=== PATIENT | female | born 1955 | race African-American/Black ===

== ENCOUNTER 2017-06-15 18:01 | Emergency (ER) | payer BC, MEDICARE ==
[~2017-06-15] VITALS: Ht 170.2 cm; Wt 92.0 kg
[~2017-06-15 18:01] MED LIST: ATOR-2 PO; CARV6.2548 PO; FURO40TA5 PO; HYDR-3927 PO; LISI40TA4 PO; OMEG-59 PO; POTA20TA82 PO
[2017-06-15] MEDS ORDERED: TRAMADOL 50MG TABLET PO ONE (19:30)
[2017-06-15 20:01] LABS: CARBON DIOXIDE 28 mEq/L (21-32); CHLORIDE 99 mEq/L (98-107)
[2017-06-15 20:03] LABS: BASOPHILS % 1.1 % (0.0-2.0); EOSINOPHILS % 3.3 % (0.0-5.0); HEMATOCRIT. 42.7 % (36.0-48.0); HEMOGLOBIN. 14.1 g/dL (12.0-16.0); LYMPHOCYTES % 26.3 % (20.0-50.0); MEAN CORPUSCULAR HEMOGLOBIN 29.7 pg (28.0-32.0); MEAN CORPUSCULAR VOLUME 89.6 fL (81.0-99.0); NEUTROPHILS % 58.3 % (40.0-76.0); PLATELET 140 x1000/uL (130-400); RED BLOOD CELL COUNT 4.77 mill/uL (4.2-5.4); RED CELL DISTRIBUTION WIDTH 15.2 % (11.6-14.6)
[2017-06-15] MEDS ORDERED: SODIUM CHLORIDE 0.9% 1,000 ML IV ONE (20:38)
[2017-06-15] MEDS ORDERED: INSULIN REGULAR (HUMULIN R) UD 100 UNITS/ML SYR IV ONE (22:30)
[2017-06-15] MEDS ORDERED: INSULIN REGULAR (HUMULIN R) 300UNITS/3ML ONE (23:11)
[2017-06-15 23:42] VITALS: BP 128/91
[2017-06-15] MEDS ORDERED: INSULIN REGULAR (HUMULIN R) 300UNITS/3ML IV SCH (23:45)
== END 2017-06-16 00:10 | disposition home or self-care (01) ==
LOC: ER 18:01
DX: R25.2 Cramp and spasm (principal); E11.65 Type 2 diabetes mellitus with hyperglycemia; I11.0 Hypertensive heart disease with heart failure; Z95.0 Presence of cardiac pacemaker
CPT/HCPCS: 36415; 80053; 82962; 85025; 93970; 96361; 96374; 99285; J1815; J7030

== ENCOUNTER 2017-11-25 22:58 | Inpatient (IN) | payer MEDICARE, BC ==
[~2017-11-25] VITALS: Ht 162.6 cm; Wt 68.0 kg
[2017-11-25] MEDS ORDERED: FENTANYL CITRATE/PF 500 MCG in SODIUM CHLORIDE 0.9% 40 ML IV STA (23:14)
[2017-11-25] MEDS ORDERED: FENTANYL CITRATE/PF 50MCG/ML 2ML VIAL IV ONE (23:15)
[2017-11-25] MEDS ORDERED: FUROSEMIDE 100MG/10ML VIAL IVP ONE (23:30)
[2017-11-25 23:44] LABS: BASOPHILS % 0.4 % (0.0-2.0); EOSINOPHILS % 2.2 % (0.0-5.0); HEMATOCRIT. 39.7 % (36.0-48.0); HEMOGLOBIN. 13.1 g/dL (12.0-16.0); LYMPHOCYTES % 17.1 % (20.0-50.0); MEAN CORPUSCULAR HEMOGLOBIN 28.4 pg (28.0-32.0); MEAN CORPUSCULAR VOLUME 86.2 fL (81.0-99.0); MEAN PLATELET VOLUME 10.2 fl (7.4-10.4); MONOCYTES % 9.6 % (2.0-8.0); NEUTROPHILS % 70.7 % (40.0-76.0); PLATELET 125 x1000/uL (130-400); RED BLOOD CELL COUNT 4.61 mill/uL (4.2-5.4); RED CELL DISTRIBUTION WIDTH 15.8 % (11.6-14.6)
[2017-11-25 23:50] LABS: INR 1.2
[2017-11-25 23:55] LABS: CHLORIDE 98 mEq/L (98-107)
[2017-11-26 01:29] LABS: CLARITY URINE CLEAR (CLEAR); COLOR URINE YELLOW (YELLOW); KETONES URINE NEGATIVE (NEGATIVE); LEUKOCYTE ESTERASE URINE 1+ (NEGATIVE); NITRITE URINE POSITIVE (NEGATIVE); OCCULT BLOOD URINE 2+ (NEGATIVE); PROTEIN URINE 1+ (NEGATIVE); SPECIFIC GRAVITY URINE 1.016 (1.005-1.030); UROBILINOGEN URINE 0.2 E.U./dL (0.2-1.0)
[2017-11-26] MEDS ORDERED: CEFTRIAXONE 1 G PREMIX 50 ML IV NR (02:00)
[2017-11-26] MEDS ORDERED: SODIUM CHLORIDE 0.9% 1,000 ML IV ONE (02:00)
[2017-11-26] MEDS ORDERED: DEXTROSE 50% WATER 50ML SYRINGE IV PRN ×3 (05:45→13:15)
[2017-11-26] MEDS ORDERED: INSULIN LISPRO 100 UNITS/ML SUBCUT SCH ×4 (07:50→17:20)
[2017-11-26] MEDS ORDERED: BLOOD SUGAR DIAGNOSTIC STRIP TEST SCH ×2 (09:00→13:14)
[2017-11-26] MEDS ORDERED: FUROSEMIDE 40MG/4ML VIAL IVP SCH (09:30)
[2017-11-26] MEDS ORDERED: POTASSIUM CHLORIDE 20MEQ TABLET SR PO SCH (09:30)
[2017-11-26] MEDS ORDERED: CARVEDILOL 6.25 MG TABLET PO SCH (09:30)
[2017-11-26] MEDS ORDERED: ENOXAPARIN 40MG/0.4ML SYR SUBCUT SCH (09:30)
[2017-11-26] MEDS ORDERED: LISINOPRIL 40MG TABLET PO SCH (09:30)
[2017-11-26] MEDS: BLOOD SUGAR DIAGNOSTIC STRIP TEST SCH ×2 (09:46→12:30)
[2017-11-26 11:09] LABS: CHLORIDE 99 mEq/L (98-107)
[2017-11-26 11:14] LABS: HDL CHOLESTEROL 51 mg/dL (40-59); LDL CHOLESTEROL 85 mg/dL (5-100)
[2017-11-26 11:33] VITALS: BP 123/90
[2017-11-26] MEDS ORDERED: INSULIN LISPRO (MEDIUM DOSE) 100 UNITS/ML SUBCUT SCH (12:20)
[2017-11-26 14:58] VITALS: BP 123/88
[2017-11-26] MEDS ORDERED: CEFTRIAXONE 1 G PREMIX 50 ML IV SCH (23:00)
== END 2017-11-26 16:00 | disposition short-term general hospital (02) | DRG 292 ==
LOC: ER 23:07 → 6WST 11-26 04:20 → EDBEDREQTM 11-26 04:22 → EDBEDREQ 11-26 04:22 → ENRESERV 11-26 07:08 → SUPCPDRO 11-26 08:38
PROVIDERS: ADMIT Internal Medicine Critical Care Medicine; ATTEND Internal Medicine Critical Care Medicine
DX: I11.0 Hypertensive heart disease with heart failure (principal); N39.0 Urinary tract infection, site not specified; E44.0 Moderate protein-calorie malnutrition; I42.9 Cardiomyopathy, unspecified; E11.9 Type 2 diabetes mellitus without complications; I50.9 Heart failure, unspecified; Z79.4 Long term (current) use of insulin; Z91.14 Patient's other noncompliance with medication regimen; Z95.810 Presence of automatic (implantable) cardiac defibrillator; Z87.891 Personal history of nicotine dependence; Z79.899 Other long term (current) drug therapy
CPT/HCPCS: 36415; 71045; 80048; 80053; 80061; 81003; 82010; 82553; 82962; 83036; 83605; 83880; 84484; 85025; 85610; 87040; 87077; 87086; 87186; 93005; 93970; 96365; 96375; 99285; J0696; J1650; J1815; J1940; J3010; J7030

== ENCOUNTER 2018-11-13 17:51 | Inpatient (IN) | payer MEDICARE, BC ==
[~2018-11-13] VITALS: Ht 160 cm; Wt 92.5 kg
[~2018-11-13 17:51] MED LIST changes: -OMEG-59 PO
[2018-11-13] MEDS ORDERED: KETOROLAC 30MG/ML VIAL IV STA (18:03)
[2018-11-13] MEDS ORDERED: SODIUM CHLORIDE 0.9% 1,000 ML IV ONE (18:03)
[2018-11-13] MEDS ORDERED: IPRATROPIUM BROMIDE (0.02%) 0.5MG/2.5ML NEB HHN STA (18:32)
[2018-11-13 18:48] LABS: BASOPHILS % 0.8 % (0.0-2.0); EOSINOPHILS % 0.2 % (0.0-5.0); HEMATOCRIT. 35.8 % (36.0-48.0); HEMOGLOBIN. 11.5 g/dL (12.0-16.0); LYMPHOCYTES % 28.5 % (20.0-50.0); MEAN CORPUSCULAR HEMOGLOBIN 29.3 pg (28.0-32.0); MEAN CORPUSCULAR VOLUME 90.7 fL (81.0-99.0); MEAN PLATELET VOLUME 11.1 fl (7.4-10.4); MONOCYTES % 14.6 % (2.0-8.0); NEUTROPHILS % 55.9 % (40.0-76.0); PLATELET 94 x1000/uL (130-400); RED BLOOD CELL COUNT 3.94 mill/uL (4.2-5.4); RED CELL DISTRIBUTION WIDTH 14.5 % (11.6-14.6)
[2018-11-13 18:55] LABS: CHLORIDE 104 mEq/L (98-107)
[2018-11-13] MEDS ORDERED: ALBUTEROL (0.083%) 2.5MG/3ML NEB HHN SCH (19:00)
[2018-11-13] MEDS ORDERED: FUROSEMIDE 40MG/4ML VIAL IVP ONE (20:45)
[2018-11-13] MEDS ORDERED: DIPHENHYDRAMINE 50MG/ML VIAL IV PRN (22:45)
[2018-11-13] MEDS ORDERED: TRAMADOL 50MG TABLET PO PRN (22:45)
[2018-11-13] MEDS ORDERED: DEXTROSE 50% WATER 50ML SYRINGE IV PRN (22:45)
[2018-11-13] MEDS ORDERED: GUAIFENESIN 200MG/10ML SUGAR FREE UDC PO PRN (22:45)
[2018-11-13] MEDS ORDERED: ACETAMINOPHEN 325MG TABLET PO PRN (22:45)
[2018-11-13] MEDS ORDERED: NITROGLYCERIN 0.4MG TABLET SL SL PRN (22:45)
[2018-11-13] MEDS ORDERED: DOCUSATE SODIUM 100MG CAPSULE PO PRN (22:45)
[2018-11-13] MEDS ORDERED: IPRATROPIUM/ALBUTEROL 0.5-3(2.5)MG/3ML NEB INH PRN (22:45)
[2018-11-13] MEDS ORDERED: LORAZEPAM 0.5MG TABLET PO PRN (22:45)
[2018-11-13] MEDS ORDERED: MAGNESIUM/ALUMINUM HYDROXIDE/SIMETHICONE 30ML UDC PO PRN (22:45)
[2018-11-13] MEDS ORDERED: ONDANSETRON HCL 4MG/2ML INJ IV PRN (22:45)
[2018-11-13] MEDS ORDERED: CLONIDINE 0.1MG TABLET PO PRN (22:45)
[2018-11-13] MEDS ORDERED: ALBUTEROL (0.083%) 2.5MG/3ML NEB HHN STA (22:53)
[2018-11-14 04:30] VITALS: BP 108/61
[2018-11-14] MEDS ORDERED: ZOLPIDEM TARTRATE 5MG TABLET PO PRN ×2 (04:45→16:15)
[2018-11-14] MEDS: CARVEDILOL 3.125 MG TABLET PO SCH ×2 (06:07→17:18)
[2018-11-14] MEDS: BLOOD SUGAR DIAGNOSTIC STRIP TEST SCH ×4 (06:08→21:00)
[2018-11-14] MEDS: INSULIN LISPRO 100 UNITS/ML SUBCUT SCH ×4 (06:18→22:19)
[2018-11-14 07:41] LABS: CREATINE KINASE 382 IU/L (26-192)
[2018-11-14 07:42] LABS: CREATINE KINASE MB FRACTION < 1.0 ng/mL (0.5-3.6)
[2018-11-14 08:00] VITALS: BP 107/68
[2018-11-14] MEDS ORDERED: ENOXAPARIN 40MG/0.4ML SYR SUBCUT SCH (09:00)
[2018-11-14] MEDS: FUROSEMIDE 40MG/4ML VIAL IVP SCH ×2 (09:06→22:15)
[2018-11-14] MEDS: GUAIFENESIN/DM 600MG/30MG ER TAB 12HR PO SCH ×2 (09:07→22:14)
[2018-11-14] MEDS: SPIRONOLACTONE 25MG TABLET PO SCH ×2 (09:07→22:15)
[2018-11-14] MEDS: FAMOTIDINE 20MG TABLET PO SCH ×2 (09:07→22:14)
[2018-11-14] MEDS: ASPIRIN 325MG EC TABLET PO SCH (09:07)
[2018-11-14] MEDS: ENOXAPARIN 30MG/0.3ML SYR SUBCUT SCH ×2 (10:09→22:20)
[2018-11-14 12:06] VITALS: BP_SYST 111; BP_SYST 134; BP_DIAS 65; BP_DIAS 77
[2018-11-14] MEDS ORDERED: LIDOCAINE HCL/PF 1% 2ML VIAL ONE (15:26)
[2018-11-14] MEDS ORDERED: DIPHENOXYLATE/ATROPINE 2.5/0.025MG TABLET PO PRN (15:45)
[2018-11-14 16:00] VITALS: BP 93/66
[2018-11-14 16:53] LABS: BG BASE EXCESS -1.5 mmol/L (-2.0-2.0); BG CARBOXYHEMOGLOBIN 0.8 % (0.5-1.5); BG FRACTION INSPIRED OXYGEN 21; BG METHEMOGLOBIN 0.1 % (0.0-1.5); BG OXYHEMOGLOBIN 94.1 % (94.0-97.0); BG PCO2 33.1 mmHg (35.0-45.0); BG PH 7.441 (7.350-7.450); BG SAMPLE SITE RIGHT BRACHIAL; BG TOTAL HEMOGLOBIN 11.6 g/dL (12.0-18.0); BG VENT MODE ROOM AIR
[2018-11-14] MEDS: FLUTICASONE/VILANTEROL 200-25 BLST.W.DEV ORI SCH (17:17)
[2018-11-14] MEDS: UMECLIDINIUM BROMIDE 1 INH BLST.W.DEV IH SCH (17:17)
[2018-11-14 17:38] LABS: CREATINE KINASE MB FRACTION 1.2 ng/mL (0.5-3.6)
[2018-11-14 20:00] VITALS: BP 110/74
[2018-11-15] VITALS: BP 111/76
[2018-11-15 04:00] VITALS: BP 112/73
[2018-11-15] MEDS: CARVEDILOL 3.125 MG TABLET PO SCH ×2 (06:18→17:56)
[2018-11-15] MEDS: BLOOD SUGAR DIAGNOSTIC STRIP TEST SCH ×4 (06:43→21:29)
[2018-11-15] MEDS: INSULIN LISPRO 100 UNITS/ML SUBCUT SCH ×4 (06:44→21:00)
[2018-11-15 07:31] LABS: BASOPHILS % 0.8 % (0.0-2.0); EOSINOPHILS % 2.5 % (0.0-5.0); HEMATOCRIT. 31.9 % (36.0-48.0); HEMOGLOBIN. 10.3 g/dL (12.0-16.0); MEAN CORPUSCULAR VOLUME 89.6 fL (81.0-99.0); MEAN PLATELET VOLUME 11.6 fl (7.4-10.4); MONOCYTES % 13.5 % (2.0-8.0); NEUTROPHILS % 40.2 % (40.0-76.0); PLATELET 95 x1000/uL (130-400); RED BLOOD CELL COUNT 3.56 mill/uL (4.2-5.4); RED CELL DISTRIBUTION WIDTH 14.4 % (11.6-14.6)
[2018-11-15 08:00] VITALS: BP 108/78
[2018-11-15 08:09] LABS: PHOSPHORUS 3.4 mg/dL (2.5-4.9)
[2018-11-15] MEDS: ASPIRIN 325MG EC TABLET PO SCH (09:06)
[2018-11-15] MEDS: SPIRONOLACTONE 25MG TABLET PO SCH ×2 (09:06→21:00)
[2018-11-15] MEDS: GUAIFENESIN/DM 600MG/30MG ER TAB 12HR PO SCH ×2 (09:06→21:31)
[2018-11-15] MEDS: ENOXAPARIN 30MG/0.3ML SYR SUBCUT SCH ×2 (09:07→21:31)
[2018-11-15] MEDS: FUROSEMIDE 40MG/4ML VIAL IVP SCH ×2 (09:07→21:30)
[2018-11-15] MEDS: FAMOTIDINE 20MG TABLET PO SCH ×2 (09:07→21:30)
[2018-11-15] MEDS: FLUTICASONE/VILANTEROL 200-25 BLST.W.DEV ORI SCH (09:09)
[2018-11-15] MEDS: INSULIN GLARGINE UD 100 UNITS/ML SYR SUBCUT SCH (09:15)
[2018-11-15] MEDS: UMECLIDINIUM BROMIDE 1 INH BLST.W.DEV IH SCH (09:16)
[2018-11-15 12:00] VITALS: BP 108/74
[2018-11-15 16:00] VITALS: BP 94/66
[2018-11-15] MEDS: POTASSIUM CHLORIDE 20MEQ TABLET SR PO SCH (16:38)
[2018-11-15] MEDS ORDERED: METO2.5T14 PO (17:48)
[2018-11-15] MEDS ORDERED: SACU1TAB7 MT (17:48)
[2018-11-15] MEDS ORDERED: ASPI-1159 MT (17:48)
[2018-11-15] MEDS ORDERED: OMEP40CA34 MT (17:48)
[2018-11-15] MEDS ORDERED: GABA-529 MT (17:48)
[2018-11-15] MEDS ORDERED: INSU100I26 SQ (17:50)
[2018-11-15] MEDS ORDERED: INSU100I28 SQ (17:50)
[2018-11-15] MEDS ORDERED: ASCO-339 MT (17:51)
[2018-11-15] MEDS ORDERED: CYAN-33 MT (17:51)
[2018-11-15 20:00] VITALS: BP 95/69
[2018-11-16] VITALS (7 sets, daily range): BP systolic 89–104; BP diastolic 62–72
[2018-11-16] MEDS: CARVEDILOL 3.125 MG TABLET PO SCH ×2 (05:02→18:00)
[2018-11-16] MEDS: BLOOD SUGAR DIAGNOSTIC STRIP TEST SCH ×4 (06:26→21:14)
[2018-11-16] MEDS: INSULIN LISPRO 100 UNITS/ML SUBCUT SCH ×4 (06:39→21:00)
[2018-11-16 07:14] LABS: BASOPHILS % 0.6 % (0.0-2.0); EOSINOPHILS % 3.9 % (0.0-5.0); HEMATOCRIT. 32.8 % (36.0-48.0); HEMOGLOBIN. 10.8 g/dL (12.0-16.0); LYMPHOCYTES % 54.9 % (20.0-50.0); MEAN CORPUSCULAR HEMOGLOBIN 29.6 pg (28.0-32.0); MEAN CORPUSCULAR VOLUME 89.9 fL (81.0-99.0); MEAN PLATELET VOLUME 12.4 fl (7.4-10.4); MONOCYTES % 13.2 % (2.0-8.0); NEUTROPHILS % 27.4 % (40.0-76.0); PLATELET 110 x1000/uL (130-400); RED BLOOD CELL COUNT 3.65 mill/uL (4.2-5.4); RED CELL DISTRIBUTION WIDTH 14.4 % (11.6-14.6)
[2018-11-16] MEDS: ENOXAPARIN 30MG/0.3ML SYR SUBCUT SCH ×2 (09:13→21:14)
[2018-11-16] MEDS: POTASSIUM CHLORIDE 20MEQ TABLET SR PO SCH (09:13)
[2018-11-16] MEDS: FUROSEMIDE 40MG/4ML VIAL IVP SCH ×2 (09:13→21:13)
[2018-11-16] MEDS: GUAIFENESIN/DM 600MG/30MG ER TAB 12HR PO SCH ×2 (09:13→21:13)
[2018-11-16] MEDS: SPIRONOLACTONE 25MG TABLET PO SCH ×2 (09:14→21:00)
[2018-11-16] MEDS: FAMOTIDINE 20MG TABLET PO SCH ×2 (09:14→21:13)
[2018-11-16] MEDS: ASPIRIN 325MG EC TABLET PO SCH (09:16)
[2018-11-16] MEDS: FLUTICASONE/VILANTEROL 200-25 BLST.W.DEV ORI SCH (10:30)
[2018-11-16] MEDS: INSULIN GLARGINE UD 100 UNITS/ML SYR SUBCUT SCH (10:30)
[2018-11-16] MEDS: UMECLIDINIUM BROMIDE 1 INH BLST.W.DEV IH SCH (10:30)
[2018-11-16] MEDS ORDERED: MAGNESIUM 2 G PREMIX 50 ML IV NR (19:30)
[2018-11-17] MEDS ORDERED: ASPIRIN 81MG EC TABLET PO SCH (09:00)
== END 2018-11-16 22:30 | disposition home or self-care (01) | DRG 292 ==
LOC: ER 17:51 → 5WST 22:05 → EDBEDREQ 22:08 → EDBEDREQTM 22:08 → SUPCPDRO 22:34 → EDBEDREQTM 22:52 → EDBEDREQ 22:52 → ENRESERV 11-14 02:34
PROVIDERS: ADMIT Internal Medicine Pulmonary Disease; ATTEND Internal Medicine Pulmonary Disease
DX: I11.0 Hypertensive heart disease with heart failure (principal); E44.0 Moderate protein-calorie malnutrition; E83.51 Hypocalcemia; D64.9 Anemia, unspecified; E11.65 Type 2 diabetes mellitus with hyperglycemia; K52.9 Noninfective gastroenteritis and colitis, unspecified; I49.3 Ventricular premature depolarization; I42.0 Dilated cardiomyopathy; J45.909 Unspecified asthma, uncomplicated; E66.9 Obesity, unspecified; I50.23 Acute on chronic systolic (congestive) heart failure; E78.00 Pure hypercholesterolemia, unspecified; E87.6 Hypokalemia; E78.5 Hyperlipidemia, unspecified; E83.42 Hypomagnesemia; Z79.4 Long term (current) use of insulin; Z79.82 Long term (current) use of aspirin; Z79.899 Other long term (current) drug therapy; Z82.49 Family history of ischemic heart disease and other diseases of the circulatory system; Z82.5 Family history of asthma and other chronic lower respiratory diseases; Z83.3 Family history of diabetes mellitus; Z87.891 Personal history of nicotine dependence; Z91.19 Patient's noncompliance with other medical treatment and regimen; Z95.810 Presence of automatic (implantable) cardiac defibrillator; Z80.9 Family history of malignant neoplasm, unspecified; Z68.36 Body mass index [BMI] 36.0-36.9, adult
CPT/HCPCS: 36415; 36600; 71045; 80048; 80061; 82375; 82550; 82553; 82805; 82962; 83036; 83735; 83880; 84100; 84484; 93005; 93970; 96374; 99285; J1650; J1815; J1885; J1940; J2405; J3475; J3490; J7030; J7050; J7611; J7620

== ENCOUNTER 2019-10-17 07:49 | Emergency (ER) | payer MEDICARE, BC ==
[~2019-10-17] VITALS: Ht 167.6 cm; Wt 78.0 kg
[~2019-10-17 07:49] MED LIST changes: +ASCO-339 MT; +ASPI-1497 MT; +CYAN-33 MT; +GABA-529 MT; +INSU100I26 SQ; +INSU100I28 SQ; +METO2.5T14 PO; +OMEP40CA12 MT; +SACU1TAB7 MT
[2019-10-17] MEDS ORDERED: ACETAMINOPHEN 500MG TABLET PO ONE (09:00)
[2019-10-17 10:40] VITALS: BP 138/97
== END 2019-10-17 11:04 | disposition home or self-care (01) ==
LOC: ER 08:06
DX: M25.552 Pain in left hip (principal); E11.9 Type 2 diabetes mellitus without complications; J45.909 Unspecified asthma, uncomplicated; I11.0 Hypertensive heart disease with heart failure; I50.9 Heart failure, unspecified; Z79.899 Other long term (current) drug therapy; Z79.4 Long term (current) use of insulin; Z95.0 Presence of cardiac pacemaker
CPT/HCPCS: 73502; 99283

== ENCOUNTER 2020-11-13 10:59 | Inpatient (IN) | payer MEDICARE, BC ==
[~2020-11-13] VITALS: Ht 170.2 cm; Wt 89.8 kg
[~2020-11-13 10:59] MED LIST changes: -ASCO-339 MT; +ASCO-339 PO; -ASPI-1497 MT; +ASPI-1497 PO; -GABA-529 MT; +GABA-529 PO; +LISI40TA13 PO; -LISI40TA4 PO; -METO2.5T14 PO; +METO2.5T2 PO; -OMEP40CA12 MT; +OMEP40CA12 PO
[2020-11-13 12:25] LABS: BASOPHILS % 2.3 % (0.0-2.0); EOSINOPHILS % 7.9 % (0.0-5.0); HEMATOCRIT. 41.7 % (36.0-48.0); HEMOGLOBIN. 12.7 g/dL (12.0-16.0); LYMPHOCYTES % 27.3 % (20.0-50.0); MEAN CORPUSCULAR HEMOGLOBIN 26.5 pg (28.0-32.0); MEAN CORPUSCULAR VOLUME 86.8 fL (81.0-99.0); MEAN PLATELET VOLUME 10.4 fl (7.4-10.4); MONOCYTES % 12.5 % (2.0-8.0); PLATELET 129 x1000/uL (130-400); RED BLOOD CELL COUNT 4.81 mill/uL (4.2-5.4)
[2020-11-13 12:40] LABS: CHLORIDE 110 mEq/L (98-107)
[2020-11-13] MEDS ORDERED: ONDANSETRON HCL 4MG/2ML INJ IV PRN (13:15)
[2020-11-13] MEDS ORDERED: ACETAMINOPHEN 325MG TABLET PO PRN (13:15)
[2020-11-13] MEDS ORDERED: FUROSEMIDE 40MG/4ML VIAL IVP NR (18:15)
[2020-11-13] MEDS ORDERED: DEXTROSE 50% WATER 50ML SYRINGE IV PRN (18:30)
[2020-11-13] MEDS: INSULIN LISPRO 100 UNITS/ML SUBCUT SCH ×2 (18:30→21:00)
[2020-11-13] MEDS: BLOOD SUGAR DIAGNOSTIC STRIP TEST SCH ×2 (19:02→20:49)
[2020-11-13] MEDS ORDERED: SACUBITRIL/VALSARTAN 49MG/51MG TABLET PO SCH (21:00)
[2020-11-13] MEDS: CARVEDILOL 6.25 MG TABLET PO SCH (21:39)
[2020-11-14 01:00] VITALS: BP 126/84
[2020-11-14] MEDS ORDERED: SACU1TAB PO (01:02)
[2020-11-14] MEDS ORDERED: POTA10TA11 PO (01:02)
[2020-11-14] MEDS ORDERED: HYDR-4001 PO (01:02)
[2020-11-14] MEDS ORDERED: FURO80TA3 PO (01:02)
[2020-11-14 04:00] VITALS: BP 106/66
[2020-11-14] MEDS: BLOOD SUGAR DIAGNOSTIC STRIP TEST SCH ×2 (05:34→11:45)
[2020-11-14] MEDS: INSULIN LISPRO 100 UNITS/ML SUBCUT SCH ×2 (05:35→11:45)
[2020-11-14 06:20] LABS: HEMOGLOBIN. 12.1 g/dL (12.0-16.0); MEAN CORPUSCULAR VOLUME 86.9 fL (81.0-99.0); MEAN PLATELET VOLUME 10.9 fl (7.4-10.4); PLATELET 134 x1000/uL (130-400); RED BLOOD CELL COUNT 4.49 mill/uL (4.2-5.4); RED CELL DISTRIBUTION WIDTH 19.6 % (11.6-14.6)
[2020-11-14 06:57] LABS: CHLORIDE 108 mEq/L (98-107)
[2020-11-14 08:00] VITALS: BP 92/57
[2020-11-14] MEDS ORDERED: REGADENOSON 0.4 MG/5 ML IV SCH (08:30)
[2020-11-14] MEDS: CARVEDILOL 6.25 MG TABLET PO SCH (09:00)
[2020-11-14] MEDS ORDERED: FUROSEMIDE 40MG/4ML VIAL IVP SCH (09:00)
[2020-11-14] MEDS ORDERED: ASPIRIN 81MG TABLET PO SCH (09:00)
[2020-11-14] MEDS ORDERED: REGADENOSON 0.4 MG/5 ML IV ONE (09:41)
[2020-11-14 12:00] VITALS: BP_SYST 102; BP_SYST 153; BP_DIAS 69; BP_DIAS 84
[2020-11-14] MEDS ORDERED: SACUBITRIL/VALSARTAN 49MG/51MG TABLET PO SCH (12:30)
[2020-11-14 14:34] LABS: PLATELET ESTIMATE NORMAL
[2020-11-14 15:58] VITALS: BP 102/69
[2020-11-14 16:05] VITALS: BP 102/69
== END 2020-11-14 17:00 | disposition home or self-care (01) | DRG 205 ==
LOC: ER 10:59 → 8WST 13:00 → ENRESERV 23:04
PROVIDERS: ADMIT Ophthalmology; ATTEND Ophthalmology
DX: M94.0 Chondrocostal junction syndrome [Tietze] (principal); I50.23 Acute on chronic systolic (congestive) heart failure; N17.0 Acute kidney failure with tubular necrosis; E44.1 Mild protein-calorie malnutrition; I42.0 Dilated cardiomyopathy; I25.10 Atherosclerotic heart disease of native coronary artery without angina pectoris; I11.0 Hypertensive heart disease with heart failure; E11.9 Type 2 diabetes mellitus without complications; E87.5 Hyperkalemia; Z87.891 Personal history of nicotine dependence; E87.8 Other disorders of electrolyte and fluid balance, not elsewhere classified; D72.819 Decreased white blood cell count, unspecified; E78.5 Hyperlipidemia, unspecified; J44.9 Chronic obstructive pulmonary disease, unspecified; I44.7 Left bundle-branch block, unspecified; Z20.822 Contact with and (suspected) exposure to COVID-19; Z95.810 Presence of automatic (implantable) cardiac defibrillator; R74.01 Elevation of levels of liver transaminase levels; G89.29 Other chronic pain; M25.512 Pain in left shoulder; Z83.3 Family history of diabetes mellitus; Z82.5 Family history of asthma and other chronic lower respiratory diseases; Z82.49 Family history of ischemic heart disease and other diseases of the circulatory system; Z79.899 Other long term (current) drug therapy; Z79.82 Long term (current) use of aspirin; Z68.31 Body mass index [BMI] 31.0-31.9, adult
CPT/HCPCS: 36415; 71045; 73030; 78452; 80048; 80053; 80061; 82962; 83735; 83880; 84484; 85025; 87426; 93005; 93017; 93306; 99285; A9500; J1940; J2785

== ENCOUNTER 2021-07-19 14:55 | Inpatient (IN) | payer MEDICARE, BC ==
[~2021-07-19] VITALS: Ht 167.6 cm; Wt 91.6 kg
[~2021-07-19 14:55] MED LIST changes: -FURO40TA5 PO; +FURO80TA3 PO; -HYDR-3927 PO; +HYDR-4001 PO; -METO2.5T2 PO; -OMEP40CA12 PO; +OMEP40CA20 PO; +POTA10TA11 PO; -POTA20TA82 PO; +SACU1TAB PO; -SACU1TAB7 MT
[2021-07-19 16:08] LABS: BASOPHILS % 0.6 % (0.0-2.0); EOSINOPHILS % 0.3 % (0.0-5.0); HEMATOCRIT. 37.1 % (36.0-48.0); MEAN CORPUSCULAR VOLUME 89.7 fL (81.0-99.0); MEAN PLATELET VOLUME 10.4 fl (7.4-10.4); MONOCYTES % 8.3 % (2.0-8.0); NEUTROPHILS % 81.8 % (40.0-76.0); PLATELET 122 x1000/uL (130-400); RED BLOOD CELL COUNT 4.14 mill/uL (4.2-5.4); RED CELL DISTRIBUTION WIDTH 14.9 % (11.6-14.6)
[2021-07-19 16:13] LABS: CHLORIDE 105 mEq/L (98-107)
[2021-07-19] MEDS ORDERED: FUROSEMIDE 20MG/2ML VIAL IVP ONE (16:45)
[2021-07-19] MEDS ORDERED: ACETAMINOPHEN 325MG TABLET PO ONE (17:45)
[2021-07-19 19:15] LABS: CLARITY URINE CLEAR (CLEAR); COLOR URINE YELLOW (YELLOW); KETONES URINE NEGATIVE (NEGATIVE); LEUKOCYTE ESTERASE URINE 2+ (NEGATIVE); NITRITE URINE POSITIVE (NEGATIVE); OCCULT BLOOD URINE 2+ (NEGATIVE); PROTEIN URINE 1+ (NEGATIVE); SPECIFIC GRAVITY URINE 1.012 (1.005-1.030); UROBILINOGEN URINE 0.2 E.U./dL (0.2-1.0)
[2021-07-19] MEDS ORDERED: CEFTRIAXONE 1 G PREMIX 50 ML IV ONE (20:15)
[2021-07-19] MEDS ORDERED: NITROGLYCERIN 0.4MG TABLET SL SL PRN (21:15)
[2021-07-19] MEDS ORDERED: GUAIFENESIN 200MG/10ML SUGAR FREE UDC PO PRN (21:15)
[2021-07-19] MEDS ORDERED: ACETAMINOPHEN 325MG TABLET PO PRN (21:15)
[2021-07-19] MEDS ORDERED: DOCUSATE SODIUM 100MG CAPSULE PO PRN (21:15)
[2021-07-19] MEDS ORDERED: ONDANSETRON HCL 4MG/2ML INJ IV PRN (21:15)
[2021-07-19] MEDS ORDERED: CLONIDINE 0.1MG TABLET PO PRN (21:15)
[2021-07-19] MEDS ORDERED: ZOLPIDEM TARTRATE 5MG TABLET PO PRN (21:15)
[2021-07-19] MEDS ORDERED: IPRATROPIUM/ALBUTEROL 0.5-3(2.5)MG/3ML NEB NEB PRN (21:15)
[2021-07-19] MEDS ORDERED: MAGNESIUM/ALUMINUM HYDROXIDE/SIMETHICONE 30ML UDC PO PRN (21:15)
[2021-07-19] MEDS ORDERED: AZITHROMYCIN 500MG/250ML 250 ML IV NR (21:19)
[2021-07-19] MEDS ORDERED: TRAMADOL 50MG TABLET PO PRN (21:34)
[2021-07-19 21:45] LABS: TOTAL IRON BINDING CAPACITY 252 ug/dL (250-450)
[2021-07-19 21:59] LABS: FOLIC ACID (FOLATE) SERUM 16.1 ng/mL (>5.38)
[2021-07-19] MEDS: FAMOTIDINE 20MG TABLET PO SCH ×2 (22:19→22:31)
[2021-07-19] MEDS: ENOXAPARIN 40MG/0.4ML SYR SUBCUT SCH (22:31)
[2021-07-20] VITALS (7 sets, daily range): BP systolic 100–123; BP diastolic 63–85
[2021-07-20] MEDS ORDERED: AMIO100T4 PO (03:23)
[2021-07-20] MEDS ORDERED: METO5TAB7 PO (03:23)
[2021-07-20] MEDS: CARVEDILOL 3.125 MG TABLET PO SCH ×2 (06:00→17:55)
[2021-07-20 06:14] LABS: HEMATOCRIT. 36.5 % (36.0-48.0); HEMOGLOBIN. 11.9 g/dL (12.0-16.0); MEAN CORPUSCULAR HEMOGLOBIN 29.6 pg (28.0-32.0); MEAN CORPUSCULAR VOLUME 90.7 fL (81.0-99.0); MEAN PLATELET VOLUME 10.3 fl (7.4-10.4); PLATELET 104 x1000/uL (130-400); RED BLOOD CELL COUNT 4.02 mill/uL (4.2-5.4); RED CELL DISTRIBUTION WIDTH 15.2 % (11.6-14.6)
[2021-07-20 06:19] LABS: CHLORIDE 103 mEq/L (98-107)
[2021-07-20 06:25] LABS: PHOSPHORUS 2.8 mg/dL (2.5-4.9)
[2021-07-20 06:28] LABS: CREATINE KINASE 126 IU/L (26-192)
[2021-07-20 06:31] LABS: CREATINE KINASE MB FRACTION 1.3 ng/mL (0.5-3.6)
[2021-07-20] MEDS: FUROSEMIDE 40MG/4ML VIAL IVP SCH ×2 (08:54→20:31)
[2021-07-20] MEDS: ASPIRIN 325MG EC TABLET PO SCH (08:54)
[2021-07-20] MEDS: CHOLECALCIFEROL (D3) 1000 UNIT TABLET PO SCH (08:54)
[2021-07-20] MEDS: ZINC SULFATE 220 MG ( 50 ) CAPSULE PO SCH (08:54)
[2021-07-20] MEDS: ASCORBIC ACID 500 MG TABLET PO SCH ×2 (08:54→20:31)
[2021-07-20] MEDS ORDERED: PNEUMOCOCCAL 23-VAL P-SAC VAC 0.5 ML IM ONE (12:00)
[2021-07-20] MEDS ORDERED: INFLUENZA VACCINE 05/PF 0.5 ML SYRINGE IM ONE (12:00)
[2021-07-20 13:20] LABS: PLATELET ESTIMATE SLIGHTLY DECREASED
[2021-07-20 16:20] LABS: CREATINE KINASE 142 IU/L (26-192)
[2021-07-20] MEDS ORDERED: LEVOFLOXACIN 500MG PREMIX 100 ML IV SCH (17:15)
[2021-07-20] MEDS ORDERED: LEVOFLOXACIN 500MG PREMIX 100 ML IV NR (18:30)
[2021-07-20] MEDS ORDERED: MAGNESIUM 2 G PREMIX 50 ML IV ONE (18:30)
[2021-07-20] MEDS ORDERED: NALOXONE HCL 0.4MG/ML VIAL IV PRN (18:30)
[2021-07-20] MEDS ORDERED: CEFTRIAXONE 1,000 MG in DEXTROSE 5% WATER 50 ML IV SCH (20:00)
[2021-07-20] MEDS: CEFTRIAXONE 1,000 MG in DEXTROSE 5% WATER 50 ML IV SCH (20:30)
[2021-07-20] MEDS: ENOXAPARIN 40MG/0.4ML SYR SUBCUT SCH (20:30)
[2021-07-20] MEDS ORDERED: AZITHROMYCIN 500 MG in DEXT 5% WATER 250 ML IV SCH (21:00)
[2021-07-21] VITALS: BP 111/69
[2021-07-21 04:00] VITALS: BP 100/64
[2021-07-21] MEDS: CARVEDILOL 3.125 MG TABLET PO SCH ×2 (06:00→17:37)
[2021-07-21 07:20] LABS: CHLORIDE 101 mEq/L (98-107)
[2021-07-21 07:25] LABS: HEMATOCRIT. 35.6 % (36.0-48.0); HEMOGLOBIN. 11.6 g/dL (12.0-16.0); MEAN CORPUSCULAR HEMOGLOBIN 29.2 pg (28.0-32.0); MEAN CORPUSCULAR VOLUME 89.6 fL (81.0-99.0); MEAN PLATELET VOLUME 10.8 fl (7.4-10.4); PLATELET 106 x1000/uL (130-400); RED BLOOD CELL COUNT 3.98 mill/uL (4.2-5.4); RED CELL DISTRIBUTION WIDTH 15.1 % (11.6-14.6)
[2021-07-21 07:29] LABS: LDL CHOLESTEROL 76 mg/dL (5-100)
[2021-07-21 07:30] LABS: HDL CHOLESTEROL 60 mg/dL (40-59)
[2021-07-21 08:00] VITALS: BP 103/75
[2021-07-21] MEDS: ASPIRIN 325MG EC TABLET PO SCH (09:50)
[2021-07-21] MEDS: FUROSEMIDE 40MG/4ML VIAL IVP SCH ×2 (09:51→20:18)
[2021-07-21] MEDS: CHOLECALCIFEROL (D3) 1000 UNIT TABLET PO SCH (09:51)
[2021-07-21] MEDS: ASCORBIC ACID 500 MG TABLET PO SCH ×2 (09:51→20:18)
[2021-07-21] MEDS: ZINC SULFATE 220 MG ( 50 ) CAPSULE PO SCH (09:51)
[2021-07-21 12:00] VITALS: BP 112/78
[2021-07-21] MEDS: LEVOFLOXACIN 250MG PREMIX 50 ML IV SCH (12:27)
[2021-07-21 16:00] VITALS: BP 108/67
[2021-07-21] MEDS ORDERED: LEVOFLOXACIN 250MG PREMIX 50 ML IV SCH (18:00)
[2021-07-21 20:00] VITALS: BP 116/65
[2021-07-21] MEDS: ENOXAPARIN 40MG/0.4ML SYR SUBCUT SCH (20:18)
[2021-07-21] MEDS: CEFTRIAXONE 1,000 MG in DEXTROSE 5% WATER 50 ML IV SCH (20:19)
[2021-07-21] MEDS: FAMOTIDINE 20MG TABLET PO SCH (20:19)
[2021-07-21 23:54] LABS: PLATELET ESTIMATE DECREASED
[2021-07-22] VITALS: BP 105/74
[2021-07-22 04:00] VITALS: BP 109/68
[2021-07-22] MEDS: CARVEDILOL 3.125 MG TABLET PO SCH ×2 (06:00→17:02)
[2021-07-22 08:00] VITALS: BP 101/64
[2021-07-22] MEDS: ASCORBIC ACID 500 MG TABLET PO SCH ×2 (09:01→21:36)
[2021-07-22] MEDS: FUROSEMIDE 40MG/4ML VIAL IVP SCH ×2 (09:01→21:36)
[2021-07-22] MEDS: ZINC SULFATE 220 MG ( 50 ) CAPSULE PO SCH (09:02)
[2021-07-22] MEDS: ASPIRIN 325MG EC TABLET PO SCH (09:02)
[2021-07-22] MEDS: CHOLECALCIFEROL (D3) 1000 UNIT TABLET PO SCH (09:02)
[2021-07-22] MEDS: LEVOFLOXACIN 250MG PREMIX 50 ML IV SCH (11:08)
[2021-07-22 12:00] VITALS: BP 120/82
[2021-07-22 16:00] VITALS: BP 123/74
[2021-07-22 20:00] VITALS: BP 105/70
[2021-07-22] MEDS: CEFTRIAXONE 1,000 MG in DEXTROSE 5% WATER 50 ML IV SCH (20:34)
[2021-07-22] MEDS: ENOXAPARIN 40MG/0.4ML SYR SUBCUT SCH (21:36)
[2021-07-22] MEDS: FAMOTIDINE 20MG TABLET PO SCH (21:36)
[2021-07-23] VITALS: BP 102/60
[2021-07-23 04:00] VITALS: BP 98/59
[2021-07-23] MEDS: CARVEDILOL 3.125 MG TABLET PO SCH (06:00)
[2021-07-23 08:00] VITALS: BP 126/81
[2021-07-23] MEDS: ASPIRIN 325MG EC TABLET PO SCH (10:19)
[2021-07-23] MEDS: ASCORBIC ACID 500 MG TABLET PO SCH (10:19)
[2021-07-23] MEDS: FUROSEMIDE 40MG/4ML VIAL IVP SCH (10:19)
[2021-07-23] MEDS: ZINC SULFATE 220 MG ( 50 ) CAPSULE PO SCH (10:19)
[2021-07-23] MEDS ORDERED: DEXTROSE 50% WATER 50ML SYRINGE IV PRN (11:15)
[2021-07-23] MEDS ORDERED: BLOOD SUGAR DIAGNOSTIC STRIP TEST SCH (11:40)
[2021-07-23 12:00] VITALS: BP 138/89
[2021-07-23] MEDS ORDERED: INSULIN LISPRO 100 UNITS/ML SUBCUT SCH (12:10)
[2021-07-23 16:00] VITALS: BP 112/83
[2021-07-23 16:12] VITALS: BP 112/83
== END 2021-07-23 17:15 | disposition home health service (06) | DRG 871 ==
LOC: ER 14:55 → EDBEDREQ 20:54 → EDBEDREQTM 20:54 → ENRESERV 21:40 → 7EST 23:55
PROVIDERS: ADMIT Internal Medicine; ATTEND Internal Medicine
DX: A41.9 Sepsis, unspecified organism (principal); N17.0 Acute kidney failure with tubular necrosis; N39.0 Urinary tract infection, site not specified; D61.818 Other pancytopenia; E44.0 Moderate protein-calorie malnutrition; E11.42 Type 2 diabetes mellitus with diabetic polyneuropathy; E83.51 Hypocalcemia; I11.0 Hypertensive heart disease with heart failure; I50.9 Heart failure, unspecified; J44.9 Chronic obstructive pulmonary disease, unspecified; E66.9 Obesity, unspecified; R65.20 Severe sepsis without septic shock; I25.2 Old myocardial infarction; Z82.49 Family history of ischemic heart disease and other diseases of the circulatory system; Z82.5 Family history of asthma and other chronic lower respiratory diseases; Z83.3 Family history of diabetes mellitus; Z79.4 Long term (current) use of insulin; Z95.0 Presence of cardiac pacemaker; Z68.32 Body mass index [BMI] 32.0-32.9, adult
CPT/HCPCS: 36415; 71045; 80053; 80061; 81003; 82550; 82553; 82607; 82746; 82962; 83036; 83540; 83550; 83605; 83735; 83880; 84100; 84484; 85025; 87077; 87186; 90686; 93005; 93970; 97162; 99285; J0456; J0696; J1650; J1940; J1956; J2405; J3475; J7060

== ENCOUNTER 2022-07-15 03:36 | Emergency (ER) | payer BC ==
[~2022-07-15] VITALS: Ht 167.6 cm; Wt 73.0 kg
[~2022-07-15 03:36] MED LIST changes: +AMIO100T4 PO; +METO5TAB7 PO; +POTA-185 PO; -POTA10TA11 PO; +TRAZODONE
[2022-07-15 05:00] LABS: BASOPHILS % 0.5 % (0.0-2.0); EOSINOPHILS % 0.3 % (0.0-5.0); HEMATOCRIT. 41.6 % (36.0-48.0); HEMOGLOBIN. 13.5 g/dL (12.0-16.0); LYMPHOCYTES % 10.3 % (20.0-50.0); MEAN CORPUSCULAR HEMOGLOBIN 30.3 pg (28.0-32.0); MEAN CORPUSCULAR VOLUME 93.2 fL (81.0-99.0); MEAN PLATELET VOLUME 10.1 fl (7.4-10.4); MONOCYTES % 11.5 % (2.0-8.0); NEUTROPHILS % 77.4 % (40.0-76.0); PLATELET 181 x1000/uL (130-400); RED BLOOD CELL COUNT 4.47 mill/uL (4.2-5.4); RED CELL DISTRIBUTION WIDTH 14.8 % (11.6-14.6)
[2022-07-15 05:14] LABS: CHLORIDE 96 mEq/L (98-107)
[2022-07-15] MEDS ORDERED: GABAPENTIN 300MG CAPSULE PO STA (05:30)
[2022-07-15] MEDS ORDERED: SODIUM CHLORIDE 0.9% 1,000 ML IV ONE (06:30)
[2022-07-15] MEDS ORDERED: GABA-529 MT (08:45)
[2022-07-15 08:50] VITALS: BP 135/88
== END 2022-07-15 09:34 | disposition home or self-care (01) ==
LOC: ER 03:36
DX: E11.42 Type 2 diabetes mellitus with diabetic polyneuropathy (principal); I11.0 Hypertensive heart disease with heart failure; I50.9 Heart failure, unspecified; Z95.0 Presence of cardiac pacemaker; Z79.4 Long term (current) use of insulin; Z79.899 Other long term (current) drug therapy
CPT/HCPCS: 36415; 80053; 83605; 83880; 84484; 85025; 85379; 93970; 96360; 99284; J7030

== ENCOUNTER 2023-05-25 15:58 | Inpatient (IN) | payer BC ==
[~2023-05-25] VITALS: Ht 160 cm; Wt 81.6 kg
[~2023-05-25 15:58] MED LIST changes: +GABA-529 MT
[2023-05-25 17:35] LABS: BASOPHILS % 0.3 % (0.0-2.0); EOSINOPHILS % 0.2 % (0.0-5.0); HEMATOCRIT. 37.9 % (36.0-48.0); HEMOGLOBIN. 12.5 g/dL (12.0-16.0); MEAN CORPUSCULAR HEMOGLOBIN 31.1 pg (28.0-32.0); MEAN CORPUSCULAR HGB CONC 32.9 g/dL (31.0-37.0); MEAN CORPUSCULAR VOLUME 94.5 fL (81.0-99.0); MEAN PLATELET VOLUME 10.7 fl (7.4-10.4); MONOCYTES % 12.8 % (2.0-8.0); NEUTROPHILS % 76.7 % (40.0-76.0); PLATELET 96 x1000/uL (130-400); RED BLOOD CELL COUNT 4.01 mill/uL (4.2-5.4); RED CELL DISTRIBUTION WIDTH 15.7 % (11.6-14.6); WHITE BLOOD COUNT 6.9 x1000/uL (4.5-11.0)
[2023-05-25 17:42] LABS: INDEX HEMOLYSI 1 (1-3); INDEX ICTERIC 2 (1-4); INDEX LIPEMIC 1 (1-3); POTASSIUM 3.9 mEq/L (3.5-5.1); SODIUM 136 mEq/L (136-145)
[2023-05-25 17:52] LABS: ALANINE AMINOTRANSFERASE 46 IU/L (13-61); ALBUMIN 3.3 g/dL (3.4-5.0); ASPARTATE AMINOTRANSFERASE 42 IU/L (15-37); BILIRUBIN TOTAL 3.9 mg/dL (0.1-1.0); CALCIUM 8.7 mg/dL (8.5-10.1); GLUCOSE 111 mg/dL (70-105); PROTEIN TOTAL 7.1 g/dL (6.0-8.3); UREA NITROGEN BLOOD 56 mg/dL (7-21)
[2023-05-25 17:53] LABS: NT PRO B-TYPE NATRIURETIC PEP 13248 pg/mL (5-125); TROPONIN I HIGH SENSITIVITY 22 ng/L (<54)
[2023-05-25 18:03] LABS: CARBON DIOXIDE 27 mEq/L (21-32); CHLORIDE 102 mEq/L (98-107)
[2023-05-25 18:05] LABS: CREATININE 5.1 mg/dL (0.6-1.3)
[2023-05-25 19:43] LABS: TROPONIN I HIGH SENSITIVITY 22 ng/L (<54)
[2023-05-25] MEDS ORDERED: MORPHINE SULFATE 4 MG/ML CPJ (NOT FOR IM USE) IV ONE (19:45)
[2023-05-25] MEDS ORDERED: ACETAMINOPHEN 325MG TABLET PO ONE (19:45)
[2023-05-25] MEDS ORDERED: NITROGLYCERIN 0.1MG/HR PATCH TOP ONE (19:45)
[2023-05-25] MEDS ORDERED: ONDANSETRON HCL 4MG/2ML INJ IV ONE (19:45)
[2023-05-25] MEDS ORDERED: DEXTROSE 50% WATER 50ML SYRINGE IV PRN (22:45)
[2023-05-25] MEDS ORDERED: ONDANSETRON HCL 4MG/2ML INJ IV PRN (22:45)
[2023-05-25] MEDS ORDERED: LORAZEPAM 0.5MG TABLET PO PRN (22:45)
[2023-05-25] MEDS ORDERED: IPRATROPIUM/ALBUTEROL 0.5-3(2.5)MG/3ML NEB HHN PRN (22:45)
[2023-05-25] MEDS ORDERED: ENOXAPARIN 40MG/0.4ML SYR SUBCUT SCH (22:45)
[2023-05-25] MEDS ORDERED: DOCUSATE SODIUM 100MG CAPSULE PO PRN (22:45)
[2023-05-25] MEDS ORDERED: ACETAMINOPHEN 325MG TABLET PO PRN (22:45)
[2023-05-25] MEDS ORDERED: GUAIFENESIN 200MG/10ML SUGAR FREE UDC PO PRN (22:45)
[2023-05-25] MEDS ORDERED: CLONIDINE 0.1MG TABLET PO PRN (22:45)
[2023-05-25 23:49] LABS: T4 FREE 1.14 ng/dL (0.76-1.46); THYROID STIMULATING HORMONE 1.5 uIU/mL (0.36-3.74)
[2023-05-26 00:04] LABS: VITAMIN B12 SERUM 859 pg/mL (211-911)
[2023-05-26 00:35] VITALS: BP 103/69; PULSE 68; RESP 18; TEMP 96.9; O2SAT 98
[2023-05-26 05:59] LABS: HEMATOCRIT 39.7 % (36.0-48.0); HEMOGLOBIN 12.9 g/dL (12.0-16.0); MEAN CORPUSCULAR HEMOGLOBIN 31.3 pg (28.0-32.0); MEAN CORPUSCULAR HGB CONC 32.5 g/dL (31.0-37.0); MEAN CORPUSCULAR VOLUME 96.2 fL (81.0-99.0); RED BLOOD CELL COUNT 4.12 mill/uL (4.2-5.4); RED CELL DISTRIBUTION WIDTH 16.2 % (11.6-14.6); WHITE BLOOD COUNT 4.2 x1000/uL (4.5-11.0)
[2023-05-26 06:34] LABS: CHLORIDE 102 mEq/L (98-107); INDEX HEMOLYSI 1 (1-3); INDEX ICTERIC 2 (1-4); INDEX LIPEMIC 1 (1-3); POTASSIUM 3.9 mEq/L (3.5-5.1); SODIUM 136 mEq/L (136-145)
[2023-05-26 06:44] LABS: ALANINE AMINOTRANSFERASE 40 IU/L (13-61); ALBUMIN 3.3 g/dL (3.4-5.0); ASPARTATE AMINOTRANSFERASE 27 IU/L (15-37); CALCIUM 8.4 mg/dL (8.5-10.1); CARBON DIOXIDE 28 mEq/L (21-32); CREATINE KINASE 44 IU/L (26-192); CREATINE KINASE MB FRACTION < 1.0 ng/mL (0.5-3.6); GLUCOSE 136 mg/dL (70-105); PHOSPHORUS 5.3 mg/dL (2.5-4.9); PROTEIN TOTAL 7.2 g/dL (6.0-8.3); TROPONIN I HIGH SENSITIVITY 20 ng/L (<54); UREA NITROGEN BLOOD 64 mg/dL (7-21)
[2023-05-26] MEDS: BLOOD SUGAR DIAGNOSTIC STRIP TEST SCH ×4 (07:10→21:00)
[2023-05-26 07:17] LABS: CREATININE 5.4 mg/dL (0.6-1.3)
[2023-05-26] MEDS: INSULIN LISPRO 100 UNITS/ML SUBCUT SCH ×4 (07:40→22:36)
[2023-05-26 08:00] VITALS: BP 105/68; PULSE 73; RESP 20; TEMP 97.8
[2023-05-26 08:12] LABS: PLATELET 81 x1000/uL (130-400)
[2023-05-26] MEDS: ASPIRIN 81MG TABLET PO SCH (08:43)
[2023-05-26] MEDS ORDERED: FUROSEMIDE 40MG TABLET PO SCH (09:00)
[2023-05-26 12:00] VITALS: BP 124/77; PULSE 75; RESP 18; TEMP 97.2
[2023-05-26 16:00] VITALS: BP 108/66; PULSE 66; RESP 20; TEMP 97.6
[2023-05-26] MEDS ORDERED: MEDICATION NOT ON FORMULARY EA (Atorvastatin Calcium 80 MG) PO SCH (16:00)
[2023-05-26] MEDS ORDERED: AMIODARONE HCL 200 MG TABLET PO ONE (16:00)
[2023-05-26] MEDS: AMIODARONE HCL 200 MG TABLET PO SCH (16:38)
[2023-05-26] MEDS: CARVEDILOL 6.25 MG TABLET PO SCH (16:38)
[2023-05-26 19:09] LABS: CREATINE KINASE MB FRACTION 1.4 ng/mL (0.5-3.6)
[2023-05-26 20:00] VITALS: BP 111/68; PULSE 72; RESP 16; TEMP 97.1
[2023-05-26] MEDS: FAMOTIDINE 20MG TABLET PO SCH (22:21)
[2023-05-26] MEDS: ATORVASTATIN CALCIUM 40MG TABLET PO SCH (22:21)
[2023-05-26] MEDS: ACETAMINOPHEN 325MG TABLET PO PRN (22:51)
[2023-05-27] VITALS (14 sets, daily range): BP systolic 94–123; BP diastolic 51–76; PULSE 54–75; RESP 17–20; TEMP 96.9–98
[2023-05-27 06:32] LABS: HEMATOCRIT. 37.2 % (36.0-48.0); HEMOGLOBIN. 12.3 g/dL (12.0-16.0); MEAN CORPUSCULAR HEMOGLOBIN 31.4 pg (28.0-32.0); MEAN CORPUSCULAR HGB CONC 33.1 g/dL (31.0-37.0); PLATELET 85 x1000/uL (130-400); RED BLOOD CELL COUNT 3.92 mill/uL (4.2-5.4); RED CELL DISTRIBUTION WIDTH 15.6 % (11.6-14.6); WHITE BLOOD COUNT 4.2 x1000/uL (4.5-11.0)
[2023-05-27 07:04] LABS: CHLORIDE 100 mEq/L (98-107); INDEX HEMOLYSI 1 (1-3); INDEX ICTERIC 2 (1-4); INDEX LIPEMIC 1 (1-3); POTASSIUM 4.4 mEq/L (3.5-5.1); SODIUM 132 mEq/L (136-145)
[2023-05-27 07:10] LABS: ALANINE AMINOTRANSFERASE 33 IU/L (13-61); ALBUMIN 3.1 g/dL (3.4-5.0); ASPARTATE AMINOTRANSFERASE 22 IU/L (15-37); BILIRUBIN TOTAL 2.9 mg/dL (0.1-1.0); CALCIUM 8.4 mg/dL (8.5-10.1); CARBON DIOXIDE 27 mEq/L (21-32); GLUCOSE 123 mg/dL (70-105); PHOSPHORUS 5.4 mg/dL (2.5-4.9); PROTEIN TOTAL 6.9 g/dL (6.0-8.3); UREA NITROGEN BLOOD 74 mg/dL (7-21)
[2023-05-27 07:23] LABS: DIFFERENTIAL COMMENT 1
[2023-05-27 07:24] LABS: CREATININE 6.2 mg/dL (0.6-1.3)
[2023-05-27] MEDS: FOLIC ACID/VITAMIN B COMP W-C TABLET PO SCH (08:21)
[2023-05-27] MEDS: ALLOPURINOL 100 MG TABLET PO SCH (08:21)
[2023-05-27] MEDS: ASPIRIN 81MG TABLET PO SCH (08:21)
[2023-05-27] MEDS: FUROSEMIDE 40MG/4ML VIAL IVP SCH (08:21)
[2023-05-27] MEDS: CARVEDILOL 6.25 MG TABLET PO SCH (08:21)
[2023-05-27] MEDS: AMIODARONE HCL 200 MG TABLET PO SCH ×2 (08:24→09:30)
[2023-05-27] MEDS ORDERED: ALLOPURINOL 100 MG PO SCH (09:00)
[2023-05-27] MEDS: APIXABAN 5 MG TABLET PO SCH ×2 (09:30→17:28)
[2023-05-27] MEDS: CARVEDILOL 3.125 MG TABLET PO SCH (17:28)
[2023-05-27 20:22] LABS: PLATELET ESTIMATE DECREASED
[2023-05-27] MEDS: FAMOTIDINE 20MG TABLET PO SCH (22:31)
[2023-05-27] MEDS: ATORVASTATIN CALCIUM 40MG TABLET PO SCH (22:31)
[2023-05-28] VITALS (11 sets, daily range): BP systolic 100–124; BP diastolic 54–66; PULSE 56–77; RESP 18; TEMP 97.1–98.6; O2SAT 98
[2023-05-28 05:17] LABS: HEMATOCRIT 38.1 % (36.0-48.0); HEMOGLOBIN 12.5 g/dL (12.0-16.0); MEAN CORPUSCULAR HEMOGLOBIN 31.1 pg (28.0-32.0); MEAN CORPUSCULAR HGB CONC 32.7 g/dL (31.0-37.0); MEAN CORPUSCULAR VOLUME 95.1 fL (81.0-99.0); PLATELET 97 x1000/uL (130-400); RED CELL DISTRIBUTION WIDTH 16.2 % (11.6-14.6); WHITE BLOOD COUNT 3.3 x1000/uL (4.5-11.0)
[2023-05-28 06:43] LABS: CHLORIDE 101 mEq/L (98-107); INDEX HEMOLYSI 1 (1-3); INDEX ICTERIC 1 (1-4); INDEX LIPEMIC 1 (1-3); POTASSIUM 4.3 mEq/L (3.5-5.1); SODIUM 133 mEq/L (136-145)
[2023-05-28 06:50] LABS: ALANINE AMINOTRANSFERASE 32 IU/L (13-61); ALBUMIN 3.1 g/dL (3.4-5.0); ASPARTATE AMINOTRANSFERASE 18 IU/L (15-37); BILIRUBIN TOTAL 1.8 mg/dL (0.1-1.0); CALCIUM 8.1 mg/dL (8.5-10.1); CARBON DIOXIDE 26 mEq/L (21-32); GLUCOSE 136 mg/dL (70-105); PHOSPHORUS 4.6 mg/dL (2.5-4.9); PROTEIN TOTAL 7.3 g/dL (6.0-8.3); UREA NITROGEN BLOOD 65 mg/dL (7-21)
[2023-05-28 06:57] LABS: CREATININE 5.6 mg/dL (0.6-1.3)
[2023-05-28] MEDS: CARVEDILOL 3.125 MG TABLET PO SCH (09:00)
[2023-05-28] MEDS: AMIODARONE HCL 200 MG TABLET PO SCH (09:00)
[2023-05-28] MEDS: FOLIC ACID/VITAMIN B COMP W-C TABLET PO SCH (09:21)
[2023-05-28] MEDS: ALLOPURINOL 100 MG TABLET PO SCH (09:22)
[2023-05-28] MEDS: APIXABAN 5 MG TABLET PO SCH (09:22)
[2023-05-28] MEDS: ASPIRIN 81MG TABLET PO SCH (09:22)
[2023-05-28] MEDS: FUROSEMIDE 40MG/4ML VIAL IVP SCH (09:23)
[2023-05-28] MEDS: ACETAMINOPHEN 325MG TABLET PO PRN (09:50)
[2023-05-28] MEDS ORDERED: AMI2 PO (14:31)
[2023-05-28] MEDS ORDERED: FAMO20TA8 PO (14:31)
[2023-05-28] MEDS ORDERED: ALLO100T PO (14:31)
[2023-05-28] MEDS ORDERED: APIX5TAB PO (14:31)
[2023-05-28] MEDS ORDERED: COR3 PO (14:31)
[2023-05-28 14:58] LABS: HEPATITIS B SURFACE ANTIGEN NEGATIVE
[2023-05-28 15:23] LABS: HEPATITIS C VIR.AB 0.14 INDEXVAL (0.00-0.80)
[2023-05-28 15:24] LABS: HEPATITIS B CORE AB IGM NEGATIVE
[2023-05-28 15:25] LABS: HEPATITIS A AB IGM NEGATIVE (NEGATIVE)
== END 2023-05-28 16:50 | disposition home or self-care (01) | DRG 291 ==
LOC: ER 15:58 → MICUSO 21:24 → 8WST 05-26 01:00
PROVIDERS: ADMIT Internal Medicine; ATTEND Internal Medicine
PROC: 5A1D70Z Performance of Urinary Filtration, Intermittent, Less than 6 Hours Per Day (ICD-10-PCS; principal; 2023-05-26)
PROC: 5A1D70Z Performance of Urinary Filtration, Intermittent, Less than 6 Hours Per Day (ICD-10-PCS; 2023-05-27)
DX: I13.2 Hypertensive heart and chronic kidney disease with heart failure and with stage 5 chronic kidney disease, or end stage renal disease (principal); I50.43 Acute on chronic combined systolic (congestive) and diastolic (congestive) heart failure; N18.6 End stage renal disease; E46 Unspecified protein-calorie malnutrition; E87.1 Hypo-osmolality and hyponatremia; I20.0 Unstable angina; D69.6 Thrombocytopenia, unspecified; E11.22 Type 2 diabetes mellitus with diabetic chronic kidney disease; D64.9 Anemia, unspecified; E83.39 Other disorders of phosphorus metabolism; I27.20 Pulmonary hypertension, unspecified; I42.9 Cardiomyopathy, unspecified; M10.9 Gout, unspecified; K21.9 Gastro-esophageal reflux disease without esophagitis; I48.0 Paroxysmal atrial fibrillation; E78.5 Hyperlipidemia, unspecified; I44.7 Left bundle-branch block, unspecified; M54.50 Low back pain, unspecified; M71.22 Synovial cyst of popliteal space [Baker], left knee; Z68.31 Body mass index [BMI] 31.0-31.9, adult; Z79.01 Long term (current) use of anticoagulants; Z79.4 Long term (current) use of insulin; Z79.82 Long term (current) use of aspirin; Z79.899 Other long term (current) drug therapy; Z99.2 Dependence on renal dialysis; Z95.810 Presence of automatic (implantable) cardiac defibrillator; Z91.148 Patient's other noncompliance with medication regimen for other reason; Z91.199 Patient's noncompliance with other medical treatment and regimen due to unspecified reason; Z87.440 Personal history of urinary (tract) infections; Z82.49 Family history of ischemic heart disease and other diseases of the circulatory system; Z82.5 Family history of asthma and other chronic lower respiratory diseases; Z83.3 Family history of diabetes mellitus
CPT/HCPCS: 36415; 71045; 80048; 80053; 80061; 82550; 82553; 82607; 82746; 82962; 83036; 83540; 83550; 83605; 83735; 83880; 84100; 84145; 84439; 84443; 84484; 85025; 85027; 86705; 86709; 86803; 87340; 90935; 93005; 93306; 93970; 97162; 97166; 99285; J1815; J1940; J2270; J2405

== ENCOUNTER 2023-07-30 03:09 | Inpatient (IN) | payer BC ==
[~2023-07-30] VITALS: Ht 157.5 cm; Wt 90.7 kg
[2023-07-30] VITALS (13 sets, daily range): BP systolic 108–136; BP diastolic 68–84; PULSE 60–72; RESP 12–18; TEMP 97–97.7
[~2023-07-30 03:09] MED LIST changes: +ALLO100T PO; +AMI2 PO; -AMIO100T4 PO; +APIX5TAB PO; -CARV6.2548 PO; +COR3 PO; +FAMO20TA8 PO; -GABA-529 MT; -INSU100I26 SQ; -INSU100I28 SQ; -LISI40TA13 PO; -OMEP40CA20 PO; -SACU1TAB PO; -TRAZODONE
[2023-07-30 05:04] LABS: BASOPHILS % 1.1 % (0.0-2.0); EOSINOPHILS % 2.4 % (0.0-5.0); HEMATOCRIT. 41.3 % (36.0-48.0); HEMOGLOBIN. 13.1 g/dL (12.0-16.0); LYMPHOCYTES % 22.4 % (20.0-50.0); MEAN CORPUSCULAR HEMOGLOBIN 31.3 pg (28.0-32.0); MEAN CORPUSCULAR HGB CONC 31.7 g/dL (31.0-37.0); MEAN CORPUSCULAR VOLUME 98.9 fL (81.0-99.0); MONOCYTES % 13.5 % (2.0-8.0); NEUTROPHILS % 60.6 % (40.0-76.0); PLATELET 120 x1000/uL (130-400); RED BLOOD CELL COUNT 4.17 mill/uL (4.2-5.4); RED CELL DISTRIBUTION WIDTH 16.1 % (11.6-14.6); WHITE BLOOD COUNT 3.1 x1000/uL (4.5-11.0)
[2023-07-30 05:12] LABS: CALCIUM 9.8 mg/dL (8.7-10.4); POTASSIUM 4.6 mEq/L (3.5-5.1)
[2023-07-30 06:00] LABS: CREATININE 5.1 mg/dL (0.6-1.0)
[2023-07-30] MEDS ORDERED: DOCUSATE SODIUM 100MG CAPSULE PO PRN (08:30)
[2023-07-30] MEDS ORDERED: GUAIFENESIN 200MG/10ML SUGAR FREE UDC PO PRN (08:30)
[2023-07-30] MEDS ORDERED: IPRATROPIUM/ALBUTEROL 0.5-3(2.5)MG/3ML NEB HHN PRN (08:30)
[2023-07-30] MEDS ORDERED: ONDANSETRON HCL 4MG/2ML INJ IV PRN (08:30)
[2023-07-30] MEDS ORDERED: CLONIDINE 0.1MG TABLET PO PRN (08:30)
[2023-07-30] MEDS ORDERED: ACETAMINOPHEN 325MG TABLET PO PRN (08:30)
[2023-07-30] MEDS ORDERED: MAGNESIUM/ALUMINUM HYDROXIDE/SIMETHICONE 30ML UDC PO PRN (08:30)
[2023-07-30] MEDS: APIXABAN 5 MG TABLET PO SCH ×2 (09:00→17:48)
[2023-07-30] MEDS: FAMOTIDINE 20MG TABLET PO SCH (10:20)
[2023-07-30] MEDS: AMIODARONE HCL 200 MG TABLET PO SCH (10:20)
[2023-07-30] MEDS: CARVEDILOL 3.125 MG TABLET PO SCH ×2 (10:20→20:33)
[2023-07-30] MEDS: FUROSEMIDE 40MG TABLET PO SCH ×2 (10:25→17:48)
[2023-07-30 11:44] LABS: INR 1.1; PARTIAL THROMBOPLASTIN TIME 26.1 sec (23.4-31.0); PROTHROMBIN TIME 11.9 sec (9.6-11.0)
[2023-07-30] MEDS ORDERED: FENTANYL CITRATE/PF 50MCG/ML 2ML VIAL ONE (12:41)
[2023-07-30] MEDS ORDERED: LIDOCAINE HCL 1% 10 MG/ML 10ML VIAL ONE (12:48)
[2023-07-30] MEDS: CEFAZOLIN 1000MG PREMIX 50 ML IV NR (12:50)
[2023-07-30] MEDS ORDERED: CEFAZOLIN 1000MG PREMIX 50 ML IV ONE (13:15)
[2023-07-30] MEDS ORDERED: FENTANYL CITRATE/PF 50MCG/ML 2ML VIAL IV ONE (13:30)
[2023-07-30] MEDS ORDERED: SODIUM POLYSTYRENE SULFONATE 15 G/60 ML BOT PO NR (14:00)
[2023-07-30] MEDS: ASPIRIN 81MG EC TABLET PO SCH (14:50)
[2023-07-30 18:16] LABS: CLARITY URINE CLOUDY (CLEAR); COLOR URINE YELLOW (YELLOW); GLUCOSE URINE NEGATIVE (NEGATIVE); KETONES URINE NEGATIVE (NEGATIVE); LEUKOCYTE ESTERASE URINE 3+ (NEGATIVE); NITRITE URINE NEGATIVE (NEGATIVE); OCCULT BLOOD URINE TRACE (NEGATIVE); PH URINE 5.5 (4.5-8.0); PROTEIN URINE TRACE (NEGATIVE); SPECIFIC GRAVITY URINE 1.013 (1.005-1.030); UROBILINOGEN URINE 0.2 E.U./dL (0.2-1.0)
[2023-07-30 18:32] LABS: *AMPHETAMINES SCREEN URINE NEGATIVE (NEGATIVE); *BARBITURATES SCREEN URINE NEGATIVE (NEGATIVE); *BENZODIAZEPINES SCREEN URINE NEGATIVE (NEGATIVE); *COCAINE SCREEN URINE NEGATIVE (NEGATIVE); CANNABINOID URINE SCREEN NEGATIVE (NEGATIVE); ECSTASY MDMA SCREEN URINE NEGATIVE (NEGATIVE); METHADONE URINE SCREEN Neg (NEGATIVE); OPIATES URINE SCREEN NEGATIVE (NEGATIVE); PHENCYCLIDINE URINE SCREEN NEGATIVE (NEGATIVE)
[2023-07-30 18:58] LABS: SQUAMOUS EPITHELIAL CELL URINE 1+ /lpf (RARE/1+)
[2023-07-30 19:00] LABS: BACTERIA URINE NONE SEEN; RBC URINE 0-2 /hpf (0-2)
[2023-07-30 20:26] LABS: HEPATITIS A AB IGM NEGATIVE (Negative); HEPATITIS B CORE AB IGM NEGATIVE (Negative); HEPATITIS B SURFACE ANTIGEN NEGATIVE (Negative); HEPATITIS C AB NON REACTIVE (Neg) (Negative)
[2023-07-30] MEDS: ATORVASTATIN CALCIUM 40MG TABLET PO SCH (20:33)
[2023-07-30] MEDS ORDERED: FAMOTIDINE 20MG TABLET PO SCH (21:00)
[2023-07-31] VITALS (9 sets, daily range): BP systolic 108–135; BP diastolic 57–75; PULSE 56–79; RESP 18–20; TEMP 97.3–98
[2023-07-31 07:32] LABS: BASOPHILS % 0.9 % (0.0-2.0); EOSINOPHILS % 2.7 % (0.0-5.0); HEMATOCRIT. 37.2 % (36.0-48.0); HEMOGLOBIN. 12.2 g/dL (12.0-16.0); MEAN CORPUSCULAR HEMOGLOBIN 31.5 pg (28.0-32.0); MEAN CORPUSCULAR HGB CONC 32.7 g/dL (31.0-37.0); MEAN CORPUSCULAR VOLUME 96.2 fL (81.0-99.0); MEAN PLATELET VOLUME 10.3 fl (7.4-10.4); MONOCYTES % 12.9 % (2.0-8.0); NEUTROPHILS % 64.5 % (40.0-76.0); PLATELET 109 x1000/uL (130-400); RED BLOOD CELL COUNT 3.87 mill/uL (4.2-5.4); WHITE BLOOD COUNT 3.6 x1000/uL (4.5-11.0)
[2023-07-31 08:38] LABS: CALCIUM 9.3 mg/dL (8.7-10.4); CARBON DIOXIDE 23 mEq/L (21-32); CHLORIDE 106 mEq/L (98-107); CHOLESTEROL 165 mg/dL (<200); CREATININE 4.9 mg/dL (0.6-1.0); GLUCOSE 107 mg/dL (70-105); HDL CHOLESTEROL 70 mg/dL (>65); LDL CHOLESTEROL 74 mg/dL (5-100); PHOSPHORUS 6.2 mg/dL (2.5-4.9); POTASSIUM 4.5 mEq/L (3.5-5.1); SODIUM 140 mEq/L (136-145); TRIGLYCERIDE 102 mg/dL (0-150); UREA NITROGEN BLOOD 65 mg/dL (9-23)
[2023-07-31] MEDS: ASPIRIN 81MG EC TABLET PO SCH (12:40)
[2023-07-31] MEDS: CARVEDILOL 3.125 MG TABLET PO SCH ×2 (12:40→21:00)
[2023-07-31] MEDS: FUROSEMIDE 40MG TABLET PO SCH ×2 (12:40→18:31)
[2023-07-31] MEDS: AMIODARONE HCL 200 MG TABLET PO SCH (12:41)
[2023-07-31] MEDS: APIXABAN 5 MG TABLET PO SCH ×2 (12:41→18:32)
[2023-07-31] MEDS ORDERED: ACET-2708 PO (14:17)
[2023-07-31] MEDS ORDERED: FAMO20TA8 PO (14:17)
[2023-07-31] MEDS ORDERED: ALLO100T PO (14:17)
[2023-07-31] MEDS ORDERED: IMOD PO (14:17)
[2023-07-31] MEDS ORDERED: AMI2 PO (14:17)
[2023-07-31] MEDS ORDERED: APIX5TAB PO (14:17)
[2023-07-31] MEDS: LIDOCAINE 5% PATCH TOP SCH (15:01)
[2023-07-31] MEDS: ATORVASTATIN CALCIUM 40MG TABLET PO SCH (21:15)
[2023-08-01] VITALS (10 sets, daily range): BP systolic 108–136; BP diastolic 54–77; PULSE 61–77; RESP 16–20; TEMP 97.1–98
[2023-08-01 07:42] LABS: HEMATOCRIT. 36.1 % (36.0-48.0); HEMOGLOBIN. 11.8 g/dL (12.0-16.0); MEAN CORPUSCULAR HEMOGLOBIN 31.6 pg (28.0-32.0); MEAN CORPUSCULAR HGB CONC 32.8 g/dL (31.0-37.0); MEAN CORPUSCULAR VOLUME 96.3 fL (81.0-99.0); MEAN PLATELET VOLUME 10.7 fl (7.4-10.4); PLATELET 105 x1000/uL (130-400); RED BLOOD CELL COUNT 3.75 mill/uL (4.2-5.4); RED CELL DISTRIBUTION WIDTH 15.7 % (11.6-14.6); WHITE BLOOD COUNT 2.5 x1000/uL (4.5-11.0)
[2023-08-01 08:07] LABS: CALCIUM 9.1 mg/dL (8.7-10.4); CARBON DIOXIDE 22 mEq/L (21-32); CHLORIDE 106 mEq/L (98-107); DIFFERENTIAL COMMENT 1; GLUCOSE 125 mg/dL (70-105); PHOSPHORUS 5.2 mg/dL (2.5-4.9); POTASSIUM 4.2 mEq/L (3.5-5.1); SODIUM 140 mEq/L (136-145); UREA NITROGEN BLOOD 46 mg/dL (9-23)
[2023-08-01] MEDS: CARVEDILOL 3.125 MG TABLET PO SCH ×2 (09:00→20:51)
[2023-08-01] MEDS: FUROSEMIDE 40MG TABLET PO SCH ×2 (10:04→17:44)
[2023-08-01] MEDS: APIXABAN 5 MG TABLET PO SCH ×2 (10:05→17:44)
[2023-08-01] MEDS: ASPIRIN 81MG EC TABLET PO SCH (10:05)
[2023-08-01] MEDS: AMIODARONE HCL 200 MG TABLET PO SCH (10:05)
[2023-08-01] MEDS: FAMOTIDINE 20MG TABLET PO SCH (10:05)
[2023-08-01] MEDS: LIDOCAINE 5% PATCH TOP SCH (10:06)
[2023-08-01] MEDS: ATORVASTATIN CALCIUM 40MG TABLET PO SCH (20:51)
[2023-08-02] VITALS: BP 121/69; PULSE 57; RESP 18; TEMP 97.5
[2023-08-02 04:00] VITALS: BP 99/64; PULSE 62; RESP 18; TEMP 97.4
[2023-08-02 04:46] VITALS: BP 99/64; PULSE 62; TEMP 97.4; O2SAT 100
[2023-08-02 08:38] VITALS: BP 120/73; PULSE 62; RESP 20; TEMP 98.3
[2023-08-02 09:33] LABS: HEMATOCRIT. 36.7 % (36.0-48.0); MEAN CORPUSCULAR HEMOGLOBIN 31.5 pg (28.0-32.0); MEAN CORPUSCULAR HGB CONC 32.8 g/dL (31.0-37.0); MEAN CORPUSCULAR VOLUME 96.1 fL (81.0-99.0); MEAN PLATELET VOLUME 10.6 fl (7.4-10.4); PLATELET 105 x1000/uL (130-400); RED BLOOD CELL COUNT 3.82 mill/uL (4.2-5.4); RED CELL DISTRIBUTION WIDTH 15.8 % (11.6-14.6); WHITE BLOOD COUNT 2.6 x1000/uL (4.5-11.0)
[2023-08-02 09:50] LABS: DIFFERENTIAL COMMENT 1
[2023-08-02 10:08] LABS: CALCIUM 9.2 mg/dL (8.7-10.4); CARBON DIOXIDE 25 mEq/L (21-32); CHLORIDE 105 mEq/L (98-107); CREATININE 3.7 mg/dL (0.6-1.0); GLUCOSE 119 mg/dL (70-105); PHOSPHORUS 4.8 mg/dL (2.5-4.9); POTASSIUM 4.5 mEq/L (3.5-5.1); SODIUM 140 mEq/L (136-145); UREA NITROGEN BLOOD 37 mg/dL (9-23)
[2023-08-02 13:41] LABS: ANISOCYTOSIS 1+; PLATELET ESTIMATE DECREASED
[2023-08-02 15:18] LABS: ANISOCYTOSIS 1+; PLATELET ESTIMATE DECREASED
[2023-08-02 16:44] VITALS: BP 139/85; PULSE 100; RESP 18; TEMP 98.4
== END 2023-08-02 09:50 | disposition home or self-care (01) | DRG 673 ==
LOC: ER 03:37 → 7WST 05:52
PROVIDERS: ADMIT Internal Medicine; ATTEND Internal Medicine
PROC: 0JH63XZ Insertion of Tunneled Vascular Access Device into Chest Subcutaneous Tissue and Fascia, Percutaneous Approach (ICD-10-PCS; principal; 2023-07-30)
PROC: 02HV33Z Insertion of Infusion Device into Superior Vena Cava, Percutaneous Approach (ICD-10-PCS; 2023-07-30)
PROC: B5181ZA Fluoroscopy of Superior Vena Cava using Low Osmolar Contrast, Guidance (ICD-10-PCS; 2023-07-30)
PROC: B548ZZA Ultrasonography of Superior Vena Cava, Guidance (ICD-10-PCS; 2023-07-30)
PROC: 5A1D70Z Performance of Urinary Filtration, Intermittent, Less than 6 Hours Per Day (ICD-10-PCS; 2023-07-31)
PROC: 5A1D70Z Performance of Urinary Filtration, Intermittent, Less than 6 Hours Per Day (ICD-10-PCS; 2023-08-01)
DX: T82.42XA Displacement of vascular dialysis catheter, initial encounter (principal); N18.6 End stage renal disease; I13.2 Hypertensive heart and chronic kidney disease with heart failure and with stage 5 chronic kidney disease, or end stage renal disease; I50.20 Unspecified systolic (congestive) heart failure; N25.81 Secondary hyperparathyroidism of renal origin; N39.0 Urinary tract infection, site not specified; M10.9 Gout, unspecified; E11.22 Type 2 diabetes mellitus with diabetic chronic kidney disease; I48.91 Unspecified atrial fibrillation; E78.5 Hyperlipidemia, unspecified; M71.22 Synovial cyst of popliteal space [Baker], left knee; D64.9 Anemia, unspecified; I27.20 Pulmonary hypertension, unspecified; Z79.01 Long term (current) use of anticoagulants; Z82.49 Family history of ischemic heart disease and other diseases of the circulatory system; Z82.5 Family history of asthma and other chronic lower respiratory diseases; Z83.3 Family history of diabetes mellitus; Z79.899 Other long term (current) drug therapy; Z95.810 Presence of automatic (implantable) cardiac defibrillator; Z99.2 Dependence on renal dialysis; Y84.1 Kidney dialysis as the cause of abnormal reaction of the patient, or of later complication, without mention of misadventure at the time of the procedure; Y92.89 Other specified places as the place of occurrence of the external cause
CPT/HCPCS: 36415; 36558; 70491; 71045; 76937; 77001; 80048; 80061; 80305; 81003; 83036; 83735; 84100; 85025; 86705; 86709; 87340; 90935; 93970; 97162; 99152; 99153; 99285; C1750; C1769; C1887; J0690; J1642; J3010; J3490; G0500

== ENCOUNTER 2023-10-06 18:50 | Emergency (ER) | payer BC, MEDICARE ==
[~2023-10-06] VITALS: Ht 167.6 cm; Wt 82.0 kg
[~2023-10-06 18:50] MED LIST changes: +ACET-2708 PO; -ASPI-1497 PO; -COR3 PO; -HYDR-4001 PO; +IMOD PO; -METO5TAB7 PO; -POTA-185 PO
[2023-10-06 18:59] VITALS: O2SAT 100
[2023-10-06 19:46] LABS: BASOPHILS % 1.1 % (0.0-2.0); EOSINOPHILS % 2.1 % (0.0-5.0); HEMATOCRIT. 39.8 % (36.0-48.0); LYMPHOCYTES % 23.4 % (20.0-50.0); MEAN CORPUSCULAR HEMOGLOBIN 32.1 pg (28.0-32.0); MEAN CORPUSCULAR HGB CONC 32.5 g/dL (31.0-37.0); MEAN CORPUSCULAR VOLUME 98.8 fL (81.0-99.0); MEAN PLATELET VOLUME 10.1 fl (7.4-10.4); MONOCYTES % 13.1 % (2.0-8.0); NEUTROPHILS % 60.3 % (40.0-76.0); PLATELET 114 x1000/uL (130-400); RED BLOOD CELL COUNT 4.03 mill/uL (4.2-5.4); RED CELL DISTRIBUTION WIDTH 15.5 % (11.6-14.6)
[2023-10-06 19:55] LABS: INR 1.1; PROTHROMBIN TIME 12.2 sec (9.6-11.0)
[2023-10-06 20:00] LABS: ALANINE AMINOTRANSFERASE 16 IU/L (10-49); ALBUMIN 4.1 g/dL (3.2-4.8); ASPARTATE AMINOTRANSFERASE 20 IU/L (<34); BILIRUBIN TOTAL 1.1 mg/dL (0.1-1.0); CALCIUM 8.9 mg/dL (8.7-10.4); CARBON DIOXIDE 30 mEq/L (21-32); CHLORIDE 101 mEq/L (98-107); CREATININE 4.2 mg/dL (0.6-1.0); GLUCOSE 112 mg/dL (70-105); POTASSIUM 4.1 mEq/L (3.5-5.1); PROTEIN TOTAL 7.4 g/dL (6.0-8.3); SODIUM 136 mEq/L (136-145); TROPONIN I HIGH SENSITIVITY 15 ng/L (3.0-34); UREA NITROGEN BLOOD 34 mg/dL (9-23)
[2023-10-07 00:05] LABS: TROPONIN I HIGH SENSITIVITY 16 ng/L (3.0-34)
[2023-10-07 01:30] VITALS: BP 119/71; PULSE 70; RESP 19
[2023-10-07] MEDS: ASPIRIN 325MG EC TABLET PO NR (02:01)
[2023-10-07] MEDS: FLUORESCEIN SODIUM 1MG/STRIP LEFTEYE ONE (02:05)
[2023-10-07] MEDS: TETRACAINE 0.5% OPHTH DROPS 4ML LEFTEYE ONE (02:05)
[2023-10-07] MEDS ORDERED: ACET-2708 MT (03:28)
[2023-10-07] MEDS ORDERED: GUAI600T26 MT (03:28)
[2023-10-07 04:04] VITALS: TEMP 98.4
[2023-10-07] MEDS: ACETAMINOPHEN 325MG TABLET PO ONE (04:04)
== END 2023-10-07 03:51 | disposition home or self-care (01) ==
LOC: ER 18:50
DX: R05.9 Cough, unspecified (principal); R07.89 Other chest pain; H11.32 Conjunctival hemorrhage, left eye; I11.0 Hypertensive heart disease with heart failure; I50.9 Heart failure, unspecified; Z79.899 Other long term (current) drug therapy
CPT/HCPCS: 36415; 71045; 80053; 83880; 84484; 85025; 93005; 99285

== ENCOUNTER 2025-02-20 22:39 | Inpatient (IN) | payer BC, MEDICARE ==
[~2025-02-20] VITALS: Ht 162.6 cm; Wt 83.1 kg
[~2025-02-20 22:39] MED LIST changes: -IMOD PO
[2025-02-21] VITALS (13 sets, daily range): BP systolic 94–123; BP diastolic 48–69; PULSE 50–62; RESP 16–19; TEMP 36.1–36.7; O2SAT 95–98
[2025-02-21] MEDS: ONDANSETRON HCL 4MG/2ML INJ IV STA (00:02)
[2025-02-21] MEDS: SODIUM CHLORIDE 0.9% 1,000 ML IV ONE (00:03)
[2025-02-21] MEDS: FAMOTIDINE 20MG/2ML VIAL IV STA (00:03)
[2025-02-21] MEDS: MORPHINE SULFATE 4 MG/ML INJ (FOR IV/IM USE) IV STA (00:03)
[2025-02-21 00:09] LABS: BASOPHILS % 1.5 % (0.0-2.0); EOSINOPHILS % 3.4 % (0.0-5.0); HEMATOCRIT. 38.6 % (36.0-48.0); HEMOGLOBIN. 12.7 g/dL (12.0-16.0); MEAN CORPUSCULAR HGB CONC 32.9 g/dL (31.0-37.0); MEAN PLATELET VOLUME 9.6 fl (7.4-10.4); MONOCYTES % 12.9 % (2.0-8.0); NEUTROPHILS % 55.2 % (40.0-76.0); PLATELET 88 x1000/uL (130-400); RED BLOOD CELL COUNT 3.98 mill/uL (4.2-5.4); RED CELL DISTRIBUTION WIDTH 16.5 % (11.6-14.6); WHITE BLOOD COUNT 2.7 x1000/uL (4.5-11.0)
[2025-02-21 00:18] LABS: CHLORIDE 99 mEq/L (98-107); POTASSIUM 3.9 mEq/L (3.5-5.1); SODIUM 140 mEq/L (136-145)
[2025-02-21 00:19] LABS: CALCIUM 10.3 mg/dL (8.7-10.4); CARBON DIOXIDE 29 mEq/L (21-32)
[2025-02-21 00:24] LABS: GLUCOSE 111 mg/dL (70-105); TROPONIN I HIGH SENSITIVITY 18 ng/L (3.0-34); UREA NITROGEN BLOOD 33 mg/dL (9-23)
[2025-02-21 00:26] LABS: ALANINE AMINOTRANSFERASE 11 IU/L (10-49); ALBUMIN 4.3 g/dL (3.2-4.8); ASPARTATE AMINOTRANSFERASE 17 IU/L (<34); BILIRUBIN DIRECT 0.8 mg/dL (<=3.0); BILIRUBIN TOTAL 1.3 mg/dL (0.1-1.0); PROTEIN TOTAL 7.4 g/dL (6.0-8.3)
[2025-02-21 00:33] LABS: CREATININE 7.1 mg/dL (0.6-1.0)
[2025-02-21] MEDS: CEFTRIAXONE 1GM/50ML 50 ML IV NR (02:51)
[2025-02-21 02:53] LABS: TROPONIN I HIGH SENSITIVITY 19 ng/L (3.0-34)
[2025-02-21] MEDS ORDERED: MAGNESIUM/ALUMINUM HYDROXIDE/SIMETHICONE 30ML UDC PO PRN (09:15)
[2025-02-21] MEDS ORDERED: MIDODRINE HCL 5MG TABLET PO PRN (09:15)
[2025-02-21] MEDS ORDERED: CLONIDINE 0.1MG TABLET PO PRN (09:15)
[2025-02-21] MEDS ORDERED: DEXTROSE 50% WATER 50ML SYRINGE IV PRN (09:15)
[2025-02-21] MEDS ORDERED: ONDANSETRON HCL 4MG/2ML INJ IV PRN (09:15)
[2025-02-21] MEDS ORDERED: PIPERACILLIN/TAZOBACTAM 3.375 G in DEXTROSE 5% WATER 50 ML IV SCH (09:15)
[2025-02-21] MEDS ORDERED: IPRATROPIUM/ALBUTEROL 0.5-3(2.5)MG/3ML NEB HHN PRN (09:15)
[2025-02-21] MEDS ORDERED: GUAIFENESIN 200MG/10ML SUGAR FREE UDC PO PRN (09:15)
[2025-02-21] MEDS: APIXABAN 2.5 MG TABLET PO SCH (09:27)
[2025-02-21] MEDS: PANTOPRAZOLE 40MG DR TABLET PO SCH (09:27)
[2025-02-21] MEDS: DOCUSATE SODIUM 250MG CAPSULE PO SCH (09:27)
[2025-02-21] MEDS: ACETAMINOPHEN 325MG TABLET PO PRN (09:29)
[2025-02-21] MEDS ORDERED: GABA-1180 PO (09:33)
[2025-02-21] MEDS ORDERED: APIX2.5T PO (09:33)
[2025-02-21] MEDS ORDERED: SODI10PO PO (09:33)
[2025-02-21] MEDS ORDERED: TACR30OI4 TP (09:34)
[2025-02-21 11:02] LABS: CLARITY URINE TURBID (CLEAR); COLOR URINE DARK YELLOW (YELLOW); GLUCOSE URINE NEGATIVE (NEGATIVE); KETONES URINE TRACE (NEGATIVE); LEUKOCYTE ESTERASE URINE 3+ (NEGATIVE); NITRITE URINE NEGATIVE (NEGATIVE); OCCULT BLOOD URINE 2+ (NEGATIVE); PROTEIN URINE 3+ (NEGATIVE); SPECIFIC GRAVITY URINE 1.015 (1.005-1.030)
[2025-02-21 11:36] LABS: WBC URINE 50-100 /hpf (0-2)
[2025-02-21 11:37] LABS: BACTERIA URINE 3+; RBC URINE 50-100 /hpf (0-2); SQUAMOUS EPITHELIAL CELL URINE 2+ /lpf (RARE/1+); TRIPLE PHOSPHATE CRYSTAL URINE 2+ /lpf; YEAST URINE NONE SEEN
[2025-02-21] MEDS: PIPERACILLIN/TAZO 3.375G/50ML IV SCH (12:24)
[2025-02-21] MEDS: ATORVASTATIN CALCIUM 40MG TABLET PO SCH (21:12)
[2025-02-21] MEDS: GABAPENTIN 300MG CAPSULE PO SCH (21:13)
[2025-02-21 21:24] LABS: PHOSPHORUS 4.2 mg/dL (2.5-4.9); TROPONIN I HIGH SENSITIVITY 15 ng/L (3.0-34)
[2025-02-21 21:25] LABS: CREATINE KINASE 59 IU/L (34-145)
[2025-02-21] MEDS: MELATONIN 3MG TABLET PO PRN (22:26)
[2025-02-22] VITALS: BP 111/69; PULSE 62; TEMP 36.5; O2SAT 99
[2025-02-22 04:00] VITALS: BP 132/58; PULSE 56; TEMP 36.6; O2SAT 98
[2025-02-22 07:56] LABS: CALCIUM 9.3 mg/dL (8.7-10.4); POTASSIUM 4.8 mEq/L (3.5-5.1)
[2025-02-22 08:00] VITALS: BP_SYST 123; BP_SYST 126; BP_DIAS 58; BP_DIAS 60; PULSE 55; PULSE 56; RESP 18; TEMP 36.2; O2SAT 100; O2SAT 99
[2025-02-22 08:04] LABS: PHOSPHORUS 4.9 mg/dL (2.5-4.9)
[2025-02-22 08:05] LABS: T4 FREE 1.08 ng/dL (0.89-1.76); THYROID STIMULATING HORMONE 1.67 uIU/mL (0.55-4.78)
[2025-02-22 08:06] LABS: BASOPHILS % 0.9 % (0.0-2.0); EOSINOPHILS % 2.6 % (0.0-5.0); HEMATOCRIT. 38.4 % (36.0-48.0); HEMOGLOBIN. 12.1 g/dL (12.0-16.0); LYMPHOCYTES % 19.3 % (20.0-50.0); MEAN CORPUSCULAR HEMOGLOBIN 31.1 pg (28.0-32.0); MEAN CORPUSCULAR HGB CONC 31.6 g/dL (31.0-37.0); MEAN CORPUSCULAR VOLUME 98.2 fL (81.0-99.0); MEAN PLATELET VOLUME 9.9 fl (7.4-10.4); MONOCYTES % 14.4 % (2.0-8.0); NEUTROPHILS % 62.8 % (40.0-76.0); PLATELET 79 x1000/uL (130-400); RED BLOOD CELL COUNT 3.91 mill/uL (4.2-5.4); RED CELL DISTRIBUTION WIDTH 16.4 % (11.6-14.6); WHITE BLOOD COUNT 3.1 x1000/uL (4.5-11.0)
[2025-02-22 08:19] LABS: CREATININE 6.2 mg/dL (0.6-1.0)
[2025-02-22] MEDS: ALLOPURINOL 100 MG TABLET PO SCH (08:52)
[2025-02-22] MEDS ORDERED: FUROSEMIDE 20MG/2ML VIAL IVP SCH (09:00)
[2025-02-22] MEDS ORDERED: AMIODARONE 200MG TABLET PO SCH (09:00)
[2025-02-22] MEDS: FOLIC ACID/VITAMIN B COMP W-C TABLET PO SCH (09:27)
[2025-02-22 12:00] VITALS: BP 122/67; PULSE 55; RESP 18; TEMP 36.3; O2SAT 99
[2025-02-22 17:35] VITALS: BP 157/58; PULSE 56; RESP 18; TEMP 36.2; O2SAT 100
[2025-02-22 20:00] VITALS: BP 121/54; PULSE 58; RESP 18; TEMP 36.3; O2SAT 100
[2025-02-23] VITALS (15 sets, daily range): BP systolic 102–144; BP diastolic 50–76; PULSE 56–92; RESP 14–18; TEMP 36.2–37.2; O2SAT 96–99
[2025-02-23 06:08] LABS: HEMATOCRIT. 35.5 % (36.0-48.0); HEMOGLOBIN. 11.4 g/dL (12.0-16.0); MEAN CORPUSCULAR HEMOGLOBIN 31.4 pg (28.0-32.0); MEAN CORPUSCULAR HGB CONC 32.1 g/dL (31.0-37.0); MEAN PLATELET VOLUME 10.6 fl (7.4-10.4); PLATELET 79 x1000/uL (130-400); RED BLOOD CELL COUNT 3.63 mill/uL (4.2-5.4); RED CELL DISTRIBUTION WIDTH 16.7 % (11.6-14.6); WHITE BLOOD COUNT 3.3 x1000/uL (4.5-11.0)
[2025-02-23 06:39] LABS: DIFFERENTIAL COMMENT 1
[2025-02-23 06:41] LABS: POTASSIUM 5.1 mEq/L (3.5-5.1)
[2025-02-23 06:43] LABS: CALCIUM 9.6 mg/dL (8.7-10.4)
[2025-02-23 06:49] LABS: PHOSPHORUS 4.2 mg/dL (2.5-4.9)
[2025-02-23 07:09] LABS: CREATININE 7.2 mg/dL (0.6-1.0)
[2025-02-23] MEDS: POLYETHYLENE GLYCOL 3350 (17GM) 1 DOSE PACK PO SCH (12:09)
[2025-02-23 12:19] LABS: NUCLEATED RED BLOOD CELLS 1 /100 WBC
[2025-02-23 12:20] LABS: PLATELET ESTIMATE DECREASED
[2025-02-23] MEDS ORDERED: POLY17PO43 PO (13:30)
[2025-02-23] MEDS ORDERED: FOLI0.8T53 PO (13:30)
[2025-02-23] MEDS ORDERED: LIP40 PO (13:30)
[2025-02-23 19:25] LABS: INR 1.2; PROTHROMBIN TIME 12.4 sec (9.6-11.0)
== END 2025-02-23 19:30 | disposition home or self-care (01) | DRG 391 ==
LOC: ER 22:49 → EDBEDREQSVC 02-21 00:05 → EDBEDREQ 02-21 00:05 → EDBEDREQDT 02-21 00:05 → EDBEDREQTM 02-21 00:05 → 6WST 02-21 01:58 → EDBEDREQ 02-21 02:01 → EDBEDREQTM 02-21 02:01
PROVIDERS: ADMIT Hospitalist; ATTEND Hospitalist
PROC: 5A1D70Z Performance of Urinary Filtration, Intermittent, Less than 6 Hours Per Day (ICD-10-PCS; principal; 2025-02-21)
PROC: 5A1D70Z Performance of Urinary Filtration, Intermittent, Less than 6 Hours Per Day (ICD-10-PCS; 2025-02-23)
DX: K29.70 Gastritis, unspecified, without bleeding (principal); N18.6 End stage renal disease; I50.22 Chronic systolic (congestive) heart failure; I13.2 Hypertensive heart and chronic kidney disease with heart failure and with stage 5 chronic kidney disease, or end stage renal disease; R18.8 Other ascites; K57.30 Diverticulosis of large intestine without perforation or abscess without bleeding; K58.0 Irritable bowel syndrome with diarrhea; K80.20 Calculus of gallbladder without cholecystitis without obstruction; N30.90 Cystitis, unspecified without hematuria; Z99.2 Dependence on renal dialysis; K21.9 Gastro-esophageal reflux disease without esophagitis; K74.60 Unspecified cirrhosis of liver; K40.20 Bilateral inguinal hernia, without obstruction or gangrene, not specified as recurrent; G89.29 Other chronic pain; M47.817 Spondylosis without myelopathy or radiculopathy, lumbosacral region; M71.22 Synovial cyst of popliteal space [Baker], left knee; D69.6 Thrombocytopenia, unspecified; D72.819 Decreased white blood cell count, unspecified; E11.22 Type 2 diabetes mellitus with diabetic chronic kidney disease; R00.1 Bradycardia, unspecified; E11.42 Type 2 diabetes mellitus with diabetic polyneuropathy; E21.3 Hyperparathyroidism, unspecified; E11.51 Type 2 diabetes mellitus with diabetic peripheral angiopathy without gangrene; E78.5 Hyperlipidemia, unspecified; M71.21 Synovial cyst of popliteal space [Baker], right knee; I27.20 Pulmonary hypertension, unspecified; I48.91 Unspecified atrial fibrillation; I49.3 Ventricular premature depolarization; J45.909 Unspecified asthma, uncomplicated; K59.00 Constipation, unspecified; M10.9 Gout, unspecified; Z79.01 Long term (current) use of anticoagulants; Z79.899 Other long term (current) drug therapy; Z82.49 Family history of ischemic heart disease and other diseases of the circulatory system; Z82.5 Family history of asthma and other chronic lower respiratory diseases; Z83.3 Family history of diabetes mellitus; Z95.810 Presence of automatic (implantable) cardiac defibrillator
CPT/HCPCS: 36415; 71045; 74176; 80048; 80061; 80076; 81003; 82550; 82962; 83036; 83605; 83735; 83880; 84100; 84439; 84443; 84484; 85025; 90935; 93970; 97161; 97165; 99285; A4606; J0696; J1308; J2270; J2405; J2543; J7030

== ENCOUNTER 2025-05-28 09:41 | Inpatient (IN) | payer BC, MEDICARE ==
[~2025-05-28] VITALS: Ht 154.9 cm; Wt 86.3 kg
[~2025-05-28 09:41] MED LIST changes: -ACET-2708 PO; -ALLO100T PO; +APIX2.5T PO; -APIX5TAB PO; -ASCO-339 PO; -ATOR-2 PO; -CYAN-33 MT; -FAMO20TA8 PO; +FOLI0.8T53 PO; -FURO80TA3 PO; +GABA-1180 PO; -GABA-529 PO; +LIP40 PO; +POLY17PO43 PO; +SODI10PO PO; +TACR30OI4 TP
[2025-05-28 09:43] VITALS: O2SAT 97
[2025-05-28 10:12] LABS: BASOPHILS % 1.3 % (0.0-2.0); EOSINOPHILS % 6.7 % (0.0-5.0); HEMATOCRIT. 39.9 % (36.0-48.0); HEMOGLOBIN. 13.0 g/dL (12.0-16.0); LYMPHOCYTES % 25.4 % (20.0-50.0); MEAN PLATELET VOLUME 10.3 fl (7.4-10.4); MONOCYTES % 12.7 % (2.0-8.0); NEUTROPHILS % 53.9 % (40.0-76.0); PLATELET 102 x1000/uL (130-400); RED BLOOD CELL COUNT 4.25 mill/uL (4.2-5.4); RED CELL DISTRIBUTION WIDTH 14.4 % (11.6-14.6)
[2025-05-28] MEDS: ONDANSETRON HCL 4MG/2ML INJ IV ONE (10:19)
[2025-05-28 10:31] LABS: UREA NITROGEN BLOOD 14 mg/dL (9-23)
[2025-05-28 10:32] LABS: TROPONIN I HIGH SENSITIVITY 24 ng/L (3.0-34)
[2025-05-28 10:33] LABS: ASPARTATE AMINOTRANSFERASE 25 IU/L (<34); BILIRUBIN DIRECT 0.6 mg/dL (<=3.0)
[2025-05-28 10:34] LABS: BILIRUBIN TOTAL 1.6 mg/dL (0.1-1.0); PROTEIN TOTAL 7.4 g/dL (6.0-8.3)
[2025-05-28 10:59] LABS: CREATININE 3.6 mg/dL (0.6-1.0)
[2025-05-28 12:50] VITALS: BP 111/63; PULSE 75; RESP 18; TEMP 36.4; TEMP 36.418; O2SAT 98
[2025-05-28] MEDS ORDERED: CLONIDINE 0.1MG TABLET PO PRN (15:30)
[2025-05-28] MEDS ORDERED: ONDANSETRON HCL 4MG/2ML INJ IV PRN (15:30)
[2025-05-28] MEDS ORDERED: ACETAMINOPHEN 325MG TABLET PO PRN (15:30)
[2025-05-28] MEDS ORDERED: IPRATROPIUM/ALBUTEROL 0.5-3(2.5)MG/3ML NEB HHN PRN (15:30)
[2025-05-28 16:00] VITALS: BP 116/63; PULSE 79; RESP 18; TEMP 26.1; O2SAT 96
[2025-05-28 20:00] VITALS: BP 130/71; PULSE 80; RESP 18; TEMP 36.6; O2SAT 99
[2025-05-28] MEDS ORDERED: APIXABAN 2.5 MG TABLET PO SCH (21:00)
[2025-05-28 21:34] LABS: CLARITY URINE TURBID (CLEAR); COLOR URINE DARK YELLOW (YELLOW); GLUCOSE URINE NEGATIVE (NEGATIVE); KETONES URINE TRACE (NEGATIVE); LEUKOCYTE ESTERASE URINE 3+ (NEGATIVE); NITRITE URINE NEGATIVE (NEGATIVE); OCCULT BLOOD URINE TRACE (NEGATIVE); PH URINE 5.5 (4.5-8.0); PROTEIN URINE 2+ (NEGATIVE); SPECIFIC GRAVITY URINE 1.015 (1.005-1.030); UROBILINOGEN URINE 1.0 E.U./dL (0.2-1.0)
[2025-05-28 21:39] LABS: WBC URINE 15-25 /hpf (0-2)
[2025-05-28 21:40] LABS: *AMPHETAMINES SCREEN URINE NEGATIVE (NEGATIVE); *BARBITURATES SCREEN URINE NEGATIVE (NEGATIVE); *BENZODIAZEPINES SCREEN URINE NEGATIVE (NEGATIVE); BACTERIA URINE 3+; SQUAMOUS EPITHELIAL CELL URINE 2+ /lpf (RARE/1+)
[2025-05-28 21:41] LABS: *COCAINE SCREEN URINE NEGATIVE (NEGATIVE); CANNABINOID URINE SCREEN NEGATIVE (NEGATIVE); ECSTASY MDMA SCREEN URINE NEGATIVE (NEGATIVE); METHADONE URINE SCREEN NEGATIVE (NEGATIVE); OPIATES URINE SCREEN NEGATIVE (NEGATIVE); PHENCYCLIDINE URINE SCREEN NEGATIVE (NEGATIVE)
[2025-05-28] MEDS: APIXABAN 5 MG TABLET PO SCH (21:44)
[2025-05-29] VITALS: BP 123/70; PULSE 73; RESP 20; TEMP 36.7; O2SAT 98
[2025-05-29 01:37] LABS: TROPONIN I HIGH SENSITIVITY 24 ng/L (3.0-34)
[2025-05-29] MEDS: POTASSIUM CHLORIDE 20MEQ TABLET SR PO NR (02:20)
[2025-05-29 04:00] VITALS: BP 118/72; PULSE 81; RESP 18; TEMP 36.6; O2SAT 97
[2025-05-29 08:00] VITALS: BP 105/65; PULSE 65; RESP 15; TEMP 36.2; O2SAT 95
[2025-05-29 08:34] LABS: BASOPHILS % 1.4 % (0.0-2.0); EOSINOPHILS % 6.1 % (0.0-5.0); HEMATOCRIT. 39.9 % (36.0-48.0); HEMOGLOBIN. 12.7 g/dL (12.0-16.0); LYMPHOCYTES % 37.5 % (20.0-50.0); MEAN PLATELET VOLUME 10.9 fl (7.4-10.4); MONOCYTES % 13.5 % (2.0-8.0); NEUTROPHILS % 41.5 % (40.0-76.0); PLATELET 98 x1000/uL (130-400); RED BLOOD CELL COUNT 4.21 mill/uL (4.2-5.4); RED CELL DISTRIBUTION WIDTH 14.8 % (11.6-14.6)
[2025-05-29 08:45] LABS: TRIGLYCERIDE 104.0 mg/dL (0-150); TROPONIN I HIGH SENSITIVITY 25 ng/L (3.0-34); UREA NITROGEN BLOOD 31.0 mg/dL (9-23)
[2025-05-29 08:46] LABS: LDL CHOLESTEROL 117.0 mg/dL (5-100)
[2025-05-29 08:48] LABS: ASPARTATE AMINOTRANSFERASE 23 IU/L (<34); BILIRUBIN DIRECT 0.4 mg/dL (<=3.0); BILIRUBIN TOTAL 0.9 mg/dL (0.1-1.0); PROTEIN TOTAL 7.3 g/dL (6.0-8.3); T4 FREE 1.26 ng/dL (0.89-1.76)
[2025-05-29 09:02] LABS: CREATININE 5.1 mg/dL (0.6-1.0)
[2025-05-29] MEDS: AMIODARONE 200MG TABLET PO SCH (10:08)
[2025-05-29 12:00] VITALS: BP 116/62; PULSE 69; RESP 18; TEMP 36.3; O2SAT 99
[2025-05-29 16:00] VITALS: BP 127/83; PULSE 69; RESP 17; TEMP 36.3; O2SAT 98
[2025-05-29] MEDS: GABAPENTIN 300MG CAPSULE PO SCH (17:17)
[2025-05-29 20:00] VITALS: BP 113/59; PULSE 69; RESP 17; TEMP 36.7; O2SAT 99
[2025-05-29] MEDS ORDERED: POLYVINYL ALCOHOL OPHTH DROPS 15ML EACHEYE PRN (22:00)
[2025-05-29] MEDS ORDERED: CETIRIZINE 10MG TABLET PO PRN (22:07)
[2025-05-30] VITALS (15 sets, daily range): BP systolic 111–138; BP diastolic 63–78; PULSE 62–79; RESP 16–18; TEMP 36.2–36.8; O2SAT 98–100
[2025-05-30] MEDS: SEVELAMER CARBONATE 800 MG TABLET PO SCH (08:53)
[2025-05-30 09:38] LABS: BASOPHILS % 1.4 % (0.0-2.0); EOSINOPHILS % 6.1 % (0.0-5.0); HEMATOCRIT. 37.6 % (36.0-48.0); HEMOGLOBIN. 12.0 g/dL (12.0-16.0); LYMPHOCYTES % 34.5 % (20.0-50.0); MEAN PLATELET VOLUME 11.0 fl (7.4-10.4); MONOCYTES % 14.4 % (2.0-8.0); NEUTROPHILS % 43.6 % (40.0-76.0); PLATELET 95 x1000/uL (130-400); RED BLOOD CELL COUNT 3.96 mill/uL (4.2-5.4); RED CELL DISTRIBUTION WIDTH 14.6 % (11.6-14.6)
[2025-05-30 09:54] LABS: UREA NITROGEN BLOOD 43 mg/dL (9-23)
[2025-05-30 09:56] LABS: PHOSPHORUS 6.3 mg/dL (2.5-4.9)
[2025-05-30 10:03] LABS: CREATININE 6.6 mg/dL (0.6-1.0)
[2025-05-30 14:35] LABS: HEPATITIS A AB IGM NEGATIVE (Negative); HEPATITIS B CORE AB IGM NEGATIVE (Negative)
[2025-05-30 14:36] LABS: HEPATITIS C AB NON REACTIVE (Neg) (Negative)
[2025-05-30] MEDS: ATORVASTATIN CALCIUM 20MG TABLET PO SCH (20:11)
[2025-05-31] VITALS: BP 117/62; PULSE 78; RESP 16; TEMP 36.6; O2SAT 99
[2025-05-31 04:00] VITALS: BP 121/68; PULSE 80; RESP 18; TEMP 36.4; O2SAT 98
[2025-05-31 08:00] VITALS: BP 115/63; PULSE 66; RESP 20; TEMP 36.3; O2SAT 99
[2025-05-31] MEDS: ACETAMINOPHEN 325MG TABLET PO PRN (08:21)
[2025-05-31 12:00] VITALS: BP 129/75; PULSE 76; RESP 20; TEMP 36.3; O2SAT 99
[2025-05-31] MEDS ORDERED: AMI2 PO (14:06)
[2025-05-31] MEDS ORDERED: SEVE800T8 PO (14:06)
[2025-05-31] MEDS ORDERED: ATOR20TA PO (14:06)
[2025-05-31] MEDS ORDERED: APIX5TAB PO (14:06)
[2025-05-31 16:00] VITALS: BP 127/71; PULSE 79; RESP 20; TEMP 36.4; O2SAT 97
[2025-05-31 16:46] VITALS: BP 126/75; PULSE 67; RESP 20; TEMP 97.6
== END 2025-05-31 18:02 | disposition home or self-care (01) | DRG 314 ==
LOC: ER 09:43 → 6WST 12:12 → ENRESERV 12:26
PROVIDERS: ADMIT Internal Medicine; ATTEND Internal Medicine
PROC: 5A1D70Z Performance of Urinary Filtration, Intermittent, Less than 6 Hours Per Day (ICD-10-PCS; principal; 2025-05-30)
DX: I95.9 Hypotension, unspecified (principal); I50.23 Acute on chronic systolic (congestive) heart failure; N18.6 End stage renal disease; I13.2 Hypertensive heart and chronic kidney disease with heart failure and with stage 5 chronic kidney disease, or end stage renal disease; D69.59 Other secondary thrombocytopenia; K40.20 Bilateral inguinal hernia, without obstruction or gangrene, not specified as recurrent; K80.20 Calculus of gallbladder without cholecystitis without obstruction; I48.0 Paroxysmal atrial fibrillation; E78.5 Hyperlipidemia, unspecified; D64.9 Anemia, unspecified; D72.819 Decreased white blood cell count, unspecified; E11.22 Type 2 diabetes mellitus with diabetic chronic kidney disease; E83.39 Other disorders of phosphorus metabolism; K21.9 Gastro-esophageal reflux disease without esophagitis; K57.90 Diverticulosis of intestine, part unspecified, without perforation or abscess without bleeding; E11.51 Type 2 diabetes mellitus with diabetic peripheral angiopathy without gangrene; E87.6 Hypokalemia; J45.909 Unspecified asthma, uncomplicated; Z79.899 Other long term (current) drug therapy; Z95.810 Presence of automatic (implantable) cardiac defibrillator; Z99.2 Dependence on renal dialysis
CPT/HCPCS: 36415; 71045; 80048; 80061; 80076; 80305; 81003; 82550; 83735; 83880; 84100; 84439; 84443; 84484; 85025; 86705; 86709; 87340; 90935; 93005; 93970; 99285; A4606; J2405

== ENCOUNTER 2025-08-22 20:22 | Emergency (ER) | payer BC, MEDICARE ==
[~2025-08-22] VITALS: Ht 165.1 cm; Wt 75.0 kg
[2025-08-22 20:17] VITALS: O2SAT 98
[~2025-08-22 20:22] MED LIST changes: +APIX5TAB PO; +ATOR20TA PO; +SEVE800T8 PO
[2025-08-22] MEDS: TETANUS, DIPHTHERIA, PERTUSSIS VAC/PF 0.5ML (>10YR OLD) IM ONE (22:40)
[2025-08-22 22:41] VITALS: O2SAT 98
[2025-08-22] MEDS: KETOROLAC 15MG/ML VIAL IM ONE (22:41)
[2025-08-22] MEDS ORDERED: NAPR-1176 MT (23:17)
[2025-08-22] MEDS ORDERED: AMOX1TAB16 MT (23:17)
[2025-08-22] MEDS: BACITRACIN ZINC OINT UDPKT TOP ONE (23:41)
[2025-08-22 23:51] VITALS: BP 119/70; PULSE 78; RESP 12; TEMP 36.9
== END 2025-08-23 00:10 | disposition home or self-care (01) ==
LOC: ER 20:22
DX: S51.851A Open bite of right forearm, initial encounter (principal); I11.0 Hypertensive heart disease with heart failure; I50.9 Heart failure, unspecified; I48.91 Unspecified atrial fibrillation; Z79.01 Long term (current) use of anticoagulants; Z79.1 Long term (current) use of non-steroidal anti-inflammatories (NSAID); Z79.899 Other long term (current) drug therapy; Z79.621 Long term (current) use of calcineurin inhibitor; W54.0XXA Bitten by dog, initial encounter; Y93.89 Activity, other specified; Y92.89 Other specified places as the place of occurrence of the external cause; Y99.8 Other external cause status
CPT/HCPCS: 99284; 73090; 90715; 90471; 96372; J1885